=== PATIENT | female | born 1965 | race Caucasian/White ===

== ENCOUNTER → 2016-09-05 | Outpatient (CLI) | payer BC ==
--- NOTE | 2016-09-06 11:20 | MM ---
Reason for exam: screening (asymptomatic). Last mammogram was performed 1 year ago. History: Took hormonal contraceptives for 2 years. Physical Findings: A clinical breast exam by your physician is recommended on an annual basis and results should be correlated with mammographic findings. MG 3D Screening Mammo W/Cad Bilateral CC and MLO view(s) were taken. Prior study comparison: September 01, 2015, bilateral MG 3d screening mammo w/cad. The breast tissue is heterogeneously dense. This may lower the sensitivity of mammography. No significant changes when compared with prior studies. ASSESSMENT: Benign, BI-RAD 2 RECOMMENDATION: Routine screening mammogram of both breasts in 1 year.
== END ==
LOC: RADMAMWWP 13:12
PROVIDERS: ATTEND Family Medicine
DX: Z12.31 Encounter for screening mammogram for malignant neoplasm of breast (principal)
CPT/HCPCS: 77063; G0202

== ENCOUNTER → 2017-06-21 | Outpatient (CLI) | payer BC ==
--- NOTE | 2017-06-21 14:56 | NM ---
EXAMINATION TYPE: NM DatScan Brain SPECT DATE OF EXAM: 06/21/2017 COMPARISON: NONE HISTORY: Tremors TECHNIQUE: 10 drops of Lugol's solution was administered 1 hour prior to injection as a thyroid bloc carmelo agent. After the administration of 4.74 mCi I-123 Ioflupane DaTscan. Images obtained 3 hours p ost injection. SPECT images of the brain were acquired with axial and coronal reconstructions. FINDINGS: The axial SPECT images demonstrate increased background activity and normal activity within the bilateral striata. IMPRESSION: Normal uptake noted bilaterally.
== END | disposition home or self-care (01) ==
LOC: RADNMMAIN 09:41
PROVIDERS: ATTEND Psychiatry & Neurology Neurology
DX: G25.0 Essential tremor (principal)
CPT/HCPCS: 78607; A9584

== ENCOUNTER → 2017-07-10 | Outpatient (CLI) | payer BC ==
[2017-07-10 14:10] VITALS: BP 90/53; PULSE 88; RESP 15; TEMP 98.5; BMI 27.4
--- NOTE | 2017-07-10 15:56 | FL ---
EXAMINATION TYPE: FL barium swallow DATE OF EXAM: 07/10/2017 CLINICAL HISTORY: Gastric lap band with difficulty swallowing and vomiting for months. LAP-BAND place ment May 2013. TECHNIQUE: A single contrast esophagram is performed utilizing barium. 2 ounces of EZ paque used w ith 3 minutes and 48 seconds of fluoroscopy time and 80 images saved. COMPARISON: None FINDINGS: The esophagus shows normal motility proximally but delayed emptying into the stomach throug h the gastric lap band with eventual passage of contrast. This results in moderate intraesophageal re flux more exaggerated on gravity independent positioning than on gravity dependent positioning. Small hiatal hernia is seen. No significant gastroesophageal reflux was seen during real time performance of this study. No evidence of contrast extravasation. IMPRESSION: 1. Small hiatal hernia. 2. Delayed passage of contrast through the gastric lap band with mild obstruction resulting in modera te intraesophageal reflux.
[2017-07-10 17:52] LABS: HCT 41.3 % (34.0-46.0); HGB 13.5 gm/dL (11.4-16.0); MCH 31.2 pg (25.0-35.0); MCHC 32.6 g/dL (31.0-37.0); MCV 95.8 fL (80.0-100.0); Mean Platelet Volume 7.6; Platelet Count 202 k/uL (150-450); RBC 4.31 m/uL (3.80-5.40); RDW 12.1 % (11.5-15.5); WBC 4.4 k/uL (3.8-10.6)
[2017-07-10 17:57] LABS: Partial Thromboplastin Time 23.4 sec (22.0-30.0); Prothrombin Time 9.8 sec (9.0-12.0)
[2017-07-10 18:30] LABS: ALT 22 U/L (9-52); AST 20 U/L (14-36); Albumin 3.9 g/dL (3.5-5.0); Alkaline Phosphatase 62 U/L (38-126); Anion Gap 10 mmol/L; Blood Urea Nitrogen 16 mg/dL (7-17); Calcium 9.1 mg/dL (8.4-10.2); Carbon Dioxide 29 mmol/L (22-30); Chloride 101 mmol/L (98-107); Cholesterol 121 mg/dL (<200); Glucose 84 mg/dL (74-99); HDL Cholesterol 46 mg/dL (40-60); LDL Cholesterol,Calculated 64 mg/dL (0-99); Magnesium 1.8 mg/dL (1.6-2.3); Phosphorus 3.8 mg/dL (2.5-4.5); Potassium 4.3 mmol/L (3.5-5.1); Sodium 140 mmol/L (137-145); Total Bilirubin 0.2 mg/dL (0.2-1.3); Total Protein 6.3 g/dL (6.3-8.2); Triglycerides 53 mg/dL (<150)
[2017-07-11 00:38] LABS: Iron Saturation 16.01 (12.00-45.00)
[2017-07-11 00:49] LABS: Vitamin D 25 Hydroxy 18.2 ng/mL (30.0-100.0)
[2017-07-11 01:06] LABS: Folate, Serum 12.9 ng/mL
[2017-07-11 01:57] LABS: Parathyroid Hormone Intact 76.3 pg/mL (14.0-72.0)
[2017-07-12 10:56] LABS: Zinc, Serum 70 ug/dL (60-130)
[2017-07-12 16:19] LABS: Vitamin A 28 ug/dL (38-106)
[2017-07-16 08:52] LABS: Vitamin B1 64 ug/L (38-122)
[2017-07-16 15:35] LABS: Selenium 113 mcg/L (63-160)
--- NOTE | 2017-08-11 13:10 | P.PN ---
Subjective Progress Note Date: 07/10/17 DATE OF SERVICE: 07/10/2017 CHIEF COMPLAINT: Bariatric assessment. HISTORY OF PRESENT ILLNESS: Teresa Sharma is a 52-year-old female who initially had an adjustable gastric band placed in May 2011. For her height of 5 foot 4 she had weighed 200 pounds with BMI 34.4. She is now 7 years post procedure. She has maintained 40 pound weight loss. Since her last visit 2.5 years ago, she has lost 1 pound. Her percent excess weight loss is 72%. [place] body weight is 144 pounds. Her BMI has been reduced from 34.4 to 27.5. She has developed severe tremors after taking multiple antidepressants including Cymbalta, Effexor, Wellbutrin and Lexapro. She reports new onset epigastric abdominal pain. No she prevents for further evaluation and management. PAST MEDICAL HISTORY: 1. Chronic pain syndrome. 2. Morbid obesity. 3. Fibromyalgia. 4. Depression. 5. Bipolar disorder. 6. Hypothyroidism. 7. Essential tremors. PAST SURGICAL HISTORY: 1. Cholecystectomy. 2. Adjustable gastric band placement. 3. Tubal ligation. 4. . 5. Tonsillectomy. 6. Adenoidectomy. 7. Sinus surgery. 8. Neck fusion. 9. Hysterectomy. MEDICATIONS: 1. Tramadol. 2. Benadryl. 3. Imitrex. 4. Nystatin powder. 5. Synthroid. 6. Lexapro. 7. Valium. 8. Tylenol. ALLERGIES: CEPHALOSPORIN, KENALOG, LEVAQUIN, PENICILLIN, PREGABALIN, TETRACYCLINE, COUMADIN, LASIX, PAXIL, PREDNISONE, SULFA. FAMILY HISTORY: Stomach cancer including uterine cancer and colon cancer. SOCIAL HISTORY: Lifelong nontobacco user. REVIEW OF SYSTEMS: CONSTITUTIONAL: For her height of 5 foot 4 she had weighed 200 pounds with BMI 34.4. She is now 7 years post procedure. She has maintained 40 pound weight loss. Since her last visit 2.5 years ago, she has lost 1 pound. Her percent excess weight loss is 72%. [place] body weight is 144 pounds. Her BMI has been reduced from 34.4 to 27.5. GASTROINTESTINAL: No reports of increased gastroesophageal reflux disease. Reports epigastric abdominal pain. MUSCULOSKELETAL: Some improvement of lower back pain including knees since her weight loss. HEENT: No trouble with vision or hearing. ENDOCRINE: History of thyroid disorder. No reports of diabetes. CARDIOVASCULAR: No reports of chest palpitations or heart attacks. RESPIRATORY: No reports of asthma or pneumonia. NEURO: No reports of recent headaches. A pertinent history of fibromyalgia. Has chronic tremors. PSYCH: History of depression including bipolar disorder. HEMATOLOGIC: No reports of DVTs or pulmonary embolism. PHYSICAL EXAM: VITAL SIGNS: 5 feet 4 inches, 160 pounds. Vital Signs Temp 98.5 F 07/10/17 14:05 Pulse 88 07/10/17 14:05 Resp 15 07/10/17 14:05 BP 90/53 07/10/17 14:05 Pulse Ox GENERAL: Well-developed female in no distress. ABDOMEN: Soft, nontender. No erythema along the left upper abdomen. HEENT: No sclera icterus. Extraocular movements grossly intact. Moist buccal mucosa. Head is atraumatic, normocephalic. Hears conversational speech. No nasal drainage. NECK: Supple without lymphadenopathy. No JV distention. CHEST: Non-labored respirations and equal bilateral excursions. CARDIOVASCULAR: Regular rate and rhythm. Palpable 2+ radial pulses. MUSCULOSKELETAL: No clubbing, cyanosis or edema. NEUROLOGIC: No focal or lateralizing signs. Cranial nerves II through XII grossly intact. PSYCH: Appropriate affect. Alert and oriented to person, place and time. SKIN: Well perfused. Good skin turgor. ASSESSMENT: 1. Morbid obesity due to exogenous caloric intake. 2. Body mass index reduced from 34.4 to 27.5. 3. History of adjustable gastric band. 4. Osteoarthritis of the lower back. 5. History of gastroesophageal reflux disease symptoms. 6. History of depression. 7. Epigastric abdominal pain. 8. Essential tremors PLAN: 1. With her epigastric abdominal pain, recommend esophagram. 2. Recommend bariatric metabolic panel. 3. For her essential tremors, recommend evaluation for thiamine deficiency. Laboratory Last Values WBC 4.4 k/uL (3.8-10.6) 07/10/17 16:55 RBC 4.31 m/uL (3.80-5.40) 07/10/17 16:55 Hgb 13.5 gm/dL (11.4-16.0) 07/10/17 16:55 Hct 41.3 % (34.0-46.0) 07/10/17 16:55 MCV 95.8 fL (80.0-100.0) 07/10/17 16:55 MCH 31.2 pg (25.0-35.0) 07/10/17 16:55 MCHC 32.6 g/dL (31.0-37.0) 07/10/17 16:55 RDW 12.1 % (11.5-15.5) 07/10/17 16:55 Plt Count 202 k/uL (150-450) 07/10/17 16:55 PT 9.8 sec (9.0-12.0) 07/10/17 16:55 INR 1.0 (<1.2) 07/10/17 16:55 APTT 23.4 sec (22.0-30.0) 07/10/17 16:55 Sodium 140 mmol/L (137-145) 07/10/17 16:55 Potassium 4.3 mmol/L (3.5-5.1) 07/10/17 16:55 Chloride 101 mmol/L (98-107) 07/10/17 16:55 Carbon Dioxide 29 mmol/L (22-30) 07/10/17 16:55 Anion Gap 10 mmol/L 07/10/17 16:55 BUN 16 mg/dL (7-17) 07/10/17 16:55 Creatinine 0.80 mg/dL (0.52-1.04) 07/10/17 16:55 Est GFR (MDRD) Af Amer >60 (>60 ml/min/1.73 sqM) 07/10/17 16:55 Est GFR (MDRD) Non-Af >60 (>60 ml/min/1.73 sqM) 07/10/17 16:55 Glucose 84 mg/dL (74-99) 07/10/17 16:[address] Glu mg/dL 97 07/10/17 16:55 Hemoglobin A1c 5.0 % (4.0-6.0) 07/10/17 16:55 Calcium 9.1 mg/dL (8.4-10.2) 07/10/17 16:55 Phosphorus 3.8 mg/dL (2.5-4.5) 07/10/17 16:55 Magnesium 1.8 mg/dL (1.6-2.3) 07/10/17 16:55 Iron 53 ug/dL (50-170) 07/10/17 16:55 TIBC 331 ug/dL (228-460) 07/10/17 16:55 Iron Saturation 16.01 (12.00-45.00) 07/10/17 16:55 Ferritin 31.7 ng/mL (10.0-291.0) 07/10/17 16:55 Total Bilirubin 0.2 mg/dL (0.2-1.3) 07/10/17 16:55 AST 20 U/L (14-36) 07/10/17 16:55 ALT 22 U/L (9-52) 07/10/17 16:55 Alkaline Phosphatase 62 U/L (38-126) 07/10/17 16:55 Total Protein 6.3 g/dL (6.3-8.2) 07/10/17 16:55 Albumin 3.9 g/dL (3.5-5.0) 07/10/17 16:55 Prealbumin 17.0 mg/dL (18.0-42.0) L 07/10/17 16:55 Triglycerides 53 mg/dL (<150) 07/10/17 16:55 Cholesterol 121 mg/dL (<200) 07/10/17 16:55 LDL Cholesterol, Calc 64 mg/dL (0-99) 07/10/17 16:55 HDL Cholesterol 46 mg/dL (40-60) 07/10/17 16:55 Vitamin A 28 ug/dL (38-106) L 07/10/17 16:55 Vitamin B1 64 ug/L (38-122) 07/10/17 16:55 Vitamin B12 446.0 pg/mL (200.0-944.0) 07/10/17 16:55 Vitamin D 25-Hydroxy 18.2 ng/mL (30.0-100.0) L 07/10/17 16:55 Folate 12.9 ng/mL 07/10/17 16:55 TSH 0.434 mIU/L (0.465-4.680) L 07/10/17 16:55 PTH Intact 76.3 pg/mL (14.0-72.0) H 07/10/17 16:55 Copper 992 ug/L (810-1990) 07/10/17 16:55 Selenium 113 mcg/L (63-160) 07/10/17 16:55 Zinc 70 ug/dL (60-130) 07/10/17 16:55 Vitamin A is slow. Vitamin D is low TSH is suppressed PTH elevated Prealbumin is low Recommend vitamin A supplement Recommend vitamin D supplement Recommend adjustment thyroid supplement Recommend calcium intake 1200 mg daily Recommend protein intake over 75 g daily Objective - Vital Signs Vital signs: Vital Signs Temp 98.5 F 07/10/17 14:05 Pulse 88 07/10/17 14:05 Resp 15 07/10/17 14:05 BP 90/53 07/10/17 14:05 Pulse Ox Intake & Output 07/09/17 07/10/17 07/10/17 18:59 06:59 18:59 Weight 72.575 kg - Labs CBC & Chem 7: 07/10/17 16:55 07/10/17 16:55
== END | disposition home or self-care (01) ==
LOC: BARWHC3 13:56
PROVIDERS: ATTEND Surgery Plastic and Reconstructive Surgery
DX: E66.01 Morbid (severe) obesity due to excess calories (principal); M19.90 Unspecified osteoarthritis, unspecified site; R10.13 Epigastric pain; G25.0 Essential tremor; K44.9 Diaphragmatic hernia without obstruction or gangrene; E21.1 Secondary hyperparathyroidism, not elsewhere classified; E89.1 Postprocedural hypoinsulinemia; D50.9 Iron deficiency anemia, unspecified; E44.0 Moderate protein-calorie malnutrition; E55.9 Vitamin D deficiency, unspecified; K74.1 Hepatic sclerosis; N19 Unspecified kidney failure; K50.90 Crohn's disease, unspecified, without complications; K21.9 Gastro-esophageal reflux disease without esophagitis; Z88.2 Allergy status to sulfonamides; Z88.8 Allergy status to other drugs, medicaments and biological substances; Z88.1 Allergy status to other antibiotic agents; Z88.0 Allergy status to penicillin; Z79.899 Other long term (current) drug therapy; Z79.891 Long term (current) use of opiate analgesic; Z86.59 Personal history of other mental and behavioral disorders; Z98.84 Bariatric surgery status; Z68.27 Body mass index [BMI] 27.0-27.9, adult; Z87.19 Personal history of other diseases of the digestive system
CPT/HCPCS: 74220; 80053; 80061; 82306; 82525; 82607; 82728; 82746; 83036; 83540; 83550; 83735; 83970; 84100; 84134; 84255; 84425; 84443; 84590; 84630; 85027; 85610; 85730; 99212

== ENCOUNTER → 2017-07-22 | Outpatient (CLI) | payer BC ==
--- NOTE | 2017-07-22 12:05 | MR ---
EXAMINATION TYPE: MR brain wo con DATE OF EXAM: 07/22/2017 COMPARISON: NONE HISTORY: Essential tremor / Migraine TECHNIQUE: Multiplanar, multisequence images of the brain and brainstem is performed without IV contrast. FINDINGS: Diffusion weighted images demonstrate no evidence of a recent infarct or other diffusion ab normality. Two punctate foci of nonspecific white matter change measuring 2 mm and 3 mm are seen wit hin the right periventricular white matter of the frontal lobe and subcortical white matter of the le ft frontal lobe. No vasogenic edema seen surrounding these punctate foci. There is no extra-axial flu id collection. The ventricular system and cisternal spaces are normal in size and appearance. The b rain volume is age appropriate. Midline structures demonstrate normal morphology. The craniocervical junction appears within normal limits. The dural venous sinuses appear patent. The globes are intact and extraocular muscles are sy mmetric. 4 mm mucosal retention cyst is seen within the right maxillary sinus. Scant mucosal thickeni ng is present within the ethmoid sinuses. Remaining paranasal sinuses and mastoid air cells are well aerated. IMPRESSION: 1. Two punctate foci of nonspecific white matter change within the frontal lobes. This is the most ch aracteristic location for sequela of migraines but can also be seen in vasculitides or demyelinating disease, which are considered less likely. 2. Mild paranasal sinus disease within the ethmoid and right maxillary sinus with 4 mm mucosal retent ion cyst.
== END | disposition home or self-care (01) ==
LOC: RADMRIMAIN 10:46
PROVIDERS: ATTEND Nurse Practitioner Acute Care
DX: R90.82 White matter disease, unspecified (principal); G25.0 Essential tremor; Z88.5 Allergy status to narcotic agent; Z88.8 Allergy status to other drugs, medicaments and biological substances
CPT/HCPCS: 70551

== ENCOUNTER → 2017-09-04 | Outpatient (CLI) | payer BC ==
[2017-09-04 15:10] VITALS: BP 100/57; PULSE 94; TEMP 98; BMI 27.4
--- NOTE | 2017-09-28 13:39 | P.PN ---
Subjective Progress Note Date: 09/04/17 DATE OF SERVICE: 09/04/2017 CHIEF COMPLAINT: Bariatric assessment HISTORY OF PRESENT ILLNESS: Teresa Sharma is a 52-year-old female who initially had an adjustable gastric band placed in May 2011. For her height of 5 foot 4 she had weighed 200 pounds with BMI 34.4. She is 7 years postop. Today she comes in weighing 159 pounds. She has maintained 41 pound weight loss. Since her last visit 2 months ago, her weight is unchanged. Her percent excess weight loss is 72%. [place] body weight is 144 pounds. Her BMI has been reduced from 34.4 to 27.4. She reports increased gastroesophageal reflux disease including epigastric abdominal pain. PAST MEDICAL HISTORY: 1. Chronic pain syndrome. 2. Morbid obesity. 3. Fibromyalgia. 4. Depression. 5. Bipolar disorder. 6. Hypothyroidism. 7. Essential tremors. PAST SURGICAL HISTORY: 1. Cholecystectomy. 2. Adjustable gastric band placement. 3. Tubal ligation. 4. . 5. Tonsillectomy. 6. Adenoidectomy. 7. Sinus surgery. 8. Neck fusion. 9. Hysterectomy. MEDICATIONS: 1. Tramadol. 2. Benadryl. 3. Imitrex. 4. Nystatin powder. 5. Synthroid. 6. Lexapro. 7. Valium. 8. Tylenol. ALLERGIES: CEPHALOSPORIN, KENALOG, LEVAQUIN, PENICILLIN, PREGABALIN, TETRACYCLINE, COUMADIN, LASIX, PAXIL, PREDNISONE, SULFA. FAMILY HISTORY: Stomach cancer including uterine cancer and colon cancer. SOCIAL HISTORY: Lifelong nontobacco user. REVIEW OF SYSTEMS: CONSTITUTIONAL: For her height of 5 foot 4 she had weighed 200 pounds with BMI 34.4. She is now 7 years post procedure. She has maintained 40 pound weight loss. Since her last visit 2.5 years ago, she has lost 1 pound. Her percent excess weight loss is 72%. [place] body weight is 144 pounds. Her BMI has been reduced from 34.4 to 27.5. GASTROINTESTINAL: No reports of increased gastroesophageal reflux disease. Reports epigastric abdominal pain. MUSCULOSKELETAL: Some improvement of lower back pain including knees since her weight loss. HEENT: No trouble with vision or hearing. ENDOCRINE: History of thyroid disorder. No reports of diabetes. CARDIOVASCULAR: No reports of chest palpitations or heart attacks. RESPIRATORY: No reports of asthma or pneumonia. NEURO: No reports of recent headaches. A pertinent history of fibromyalgia. Has chronic tremors. PSYCH: History of depression including bipolar disorder. HEMATOLOGIC: No reports of DVTs or pulmonary embolism. PHYSICAL EXAM: VITAL SIGNS: 5 feet 4 inches, 159 pounds. BMI 27.4. Vital Signs Temp 98 F 09/04/17 15:08 Pulse 94 09/04/17 15:08 Resp BP 100/57 09/04/17 15:08 Pulse Ox GENERAL: Well-developed female in no distress. ABDOMEN: Soft, nontender. Nondistended. No tenderness over her band. HEENT: No sclera icterus. Extraocular movements grossly intact. Moist buccal mucosa. Head is atraumatic, normocephalic. Hears conversational speech. No nasal drainage. NECK: Supple without lymphadenopathy. No JV distention. CHEST: Non-labored respirations and equal bilateral excursions. CARDIOVASCULAR: Regular rate and rhythm. Palpable 2+ radial pulses. MUSCULOSKELETAL: No clubbing, cyanosis or edema. NEUROLOGIC: No focal or lateralizing signs. Cranial nerves II through XII grossly intact. PSYCH: Appropriate affect. Alert and oriented to person, place and time. SKIN: Well perfused. Good skin turgor. LABS: Reviewed in detail. Laboratory Last Values WBC 4.4 k/uL (3.8-10.6) 07/10/17 16:55 RBC 4.31 m/uL (3.80-5.40) 07/10/17 16:55 Hgb 13.5 gm/dL (11.4-16.0) 07/10/17 16:55 Hct 41.3 % (34.0-46.0) 07/10/17 16:55 MCV 95.8 fL (80.0-100.0) 07/10/17 16:55 MCH 31.2 pg (25.0-35.0) 07/10/17 16:55 MCHC 32.6 g/dL (31.0-37.0) 07/10/17 16:55 RDW 12.1 % (11.5-15.5) 07/10/17 16:55 Plt Count 202 k/uL (150-450) 07/10/17 16:55 PT 9.8 sec (9.0-12.0) 07/10/17 16:55 INR 1.0 (<1.2) 07/10/17 16:55 APTT 23.4 sec (22.0-30.0) 07/10/17 16:55 Sodium 140 mmol/L (137-145) 07/10/17 16:55 Potassium 4.3 mmol/L (3.5-5.1) 07/10/17 16:55 Chloride 101 mmol/L (98-107) 07/10/17 16:55 Carbon Dioxide 29 mmol/L (22-30) 07/10/17 16:55 Anion Gap 10 mmol/L 07/10/17 16:55 BUN 16 mg/dL (7-17) 07/10/17 16:55 Creatinine 0.80 mg/dL (0.52-1.04) 07/10/17 16:55 Est GFR (MDRD) Af Amer >60 (>60 ml/min/1.73 sqM) 07/10/17 16:55 Est GFR (MDRD) Non-Af >60 (>60 ml/min/1.73 sqM) 07/10/17 16:55 Glucose 84 mg/dL (74-99) 07/10/17 16:[address] Glu mg/dL 97 07/10/17 16:55 Hemoglobin A1c 5.0 % (4.0-6.0) 07/10/17 16:55 Calcium 9.1 mg/dL (8.4-10.2) 07/10/17 16:55 Phosphorus 3.8 mg/dL (2.5-4.5) 07/10/17 16:55 Magnesium 1.8 mg/dL (1.6-2.3) 07/10/17 16:55 Iron 53 ug/dL (50-170) 07/10/17 16:55 TIBC 331 ug/dL (228-460) 07/10/17 16:55 Iron Saturation 16.01 (12.00-45.00) 07/10/17 16:55 Ferritin 31.7 ng/mL (10.0-291.0) 07/10/17 16:55 Total Bilirubin 0.2 mg/dL (0.2-1.3) 07/10/17 16:55 AST 20 U/L (14-36) 07/10/17 16:55 ALT 22 U/L (9-52) 07/10/17 16:55 Alkaline Phosphatase 62 U/L (38-126) 07/10/17 16:55 Total Protein 6.3 g/dL (6.3-8.2) 07/10/17 16:55 Albumin 3.9 g/dL (3.5-5.0) 07/10/17 16:55 Prealbumin 17.0 mg/dL (18.0-42.0) L 07/10/17 16:55 Triglycerides 53 mg/dL (<150) 07/10/17 16:55 Cholesterol 121 mg/dL (<200) 07/10/17 16:55 LDL Cholesterol, Calc 64 mg/dL (0-99) 07/10/17 16:55 HDL Cholesterol 46 mg/dL (40-60) 07/10/17 16:55 Vitamin A 28 ug/dL (38-106) L 07/10/17 16:55 Vitamin B1 64 ug/L (38-122) 07/10/17 16:55 Vitamin B12 446.0 pg/mL (200.0-944.0) 07/10/17 16:55 Vitamin D 25-Hydroxy 18.2 ng/mL (30.0-100.0) L 07/10/17 16:55 Folate 12.9 ng/mL 07/10/17 16:55 TSH 0.434 mIU/L (0.465-4.680) L 07/10/17 16:55 PTH Intact 76.3 pg/mL (14.0-72.0) H 07/10/17 16:55 Copper 992 ug/L (810-1990) 07/10/17 16:55 Selenium 113 mcg/L (63-160) 07/10/17 16:55 Zinc 70 ug/dL (60-130) 07/10/17 16:55 Vitamin A is low Vitamin D is low TSH is suppressed PTH elevated Prealbumin is low STUDIES: Esophogram reviewed demonstrating esophageal reflux and hiatal hernia. ASSESSMENT: 1. Morbid obesity due to exogenous caloric intake. 2. Body mass index reduced from 34.4 to 27.4. 3. History of adjustable gastric band. 4. Osteoarthritis of the lower back. 5. History of gastroesophageal reflux disease symptoms. 6. History of depression. 7. Vitamin A deficiency 8. Vitamin D deficiency 9. Suppressed TSH 10. Inadequate protein intake 11. Dietary surveillance and counseling PLAN: 1. Labs reviewed. Findings are consistent with multiple vitamin deficiencies. 2. Recommend adjustment of her band 3. Recommend calcium intake 1200 mg daily 4. Recommend protein intake over 75 g daily PROCEDURES: Adjustment of gastric band. DESCRIPTION: After verbal consent. Patient was laid supine. The abdomen was cleansed with ChloraPrep over the port site. After ChloraPrep to the skin, the skin was localized with 1% lidocaine 1 mL. From her band, 1 mL of fluid was removed of 7 mL. total in her band is 6 mL. Follow up as needed. Objective - Vital Signs Vital signs: Intake & Output 09/03/17 09/04/17 09/04/17 18:59 06:59 18:59 Weight 72.484 kg
== END | disposition home or self-care (01) ==
LOC: BARWHC3 13:28
PROVIDERS: ATTEND Surgery Plastic and Reconstructive Surgery
DX: Z09 Encounter for follow-up examination after completed treatment for conditions other than malignant neoplasm (principal); E66.01 Morbid (severe) obesity due to excess calories; M19.90 Unspecified osteoarthritis, unspecified site; E55.9 Vitamin D deficiency, unspecified; E50.9 Vitamin A deficiency, unspecified; E06.0 Acute thyroiditis; Z86.59 Personal history of other mental and behavioral disorders; Z87.19 Personal history of other diseases of the digestive system; Z98.84 Bariatric surgery status; Z71.3 Dietary counseling and surveillance; Z88.8 Allergy status to other drugs, medicaments and biological substances; Z88.0 Allergy status to penicillin; Z88.1 Allergy status to other antibiotic agents; Z88.2 Allergy status to sulfonamides; Z79.891 Long term (current) use of opiate analgesic; Z79.899 Other long term (current) drug therapy
CPT/HCPCS: 99212

== ENCOUNTER → 2018-02-13 | Outpatient (CLI) | payer BC ==
--- NOTE | 2018-02-14 11:32 | MM ---
Reason for exam: screening (asymptomatic). Last mammogram was performed 1 year and 5 months ago. History: Took hormonal contraceptives for 2 years. Physical Findings: A clinical breast exam by your physician is recommended on an annual basis and results should be correlated with mammographic findings. MG 3D Screening Mammo W/Cad Bilateral CC and MLO view(s) were taken. Prior study comparison: September 05, 2016, bilateral MG 3d screening mammo w/cad. September 01, 2015, bilateral MG 3d screening mammo w/cad. The breast tissue is heterogeneously dense. This may lower the sensitivity of mammography. There is no discrete abnormality. ASSESSMENT: Negative, BI-RAD 1 RECOMMENDATION: Routine screening mammogram of both breasts in 1 year.
== END | disposition home or self-care (01) ==
LOC: RADMAMWWP 11:15
PROVIDERS: ATTEND Family Medicine
DX: Z12.31 Encounter for screening mammogram for malignant neoplasm of breast (principal)
CPT/HCPCS: 77063; 77067

== ENCOUNTER 2018-02-19 10:08 | Day surgery (SDC) | payer BC ==
[2018-02-17 13:19] VITALS: BMI 26.1
--- NOTE | 2018-02-19 09:49 | P.GSHP ---
History of Present Illness H&P Date: 02/19/18 CHIEF COMPLAINT: Colon screen HISTORY OF PRESENT ILLNESS: The patient is a 52-year-old female who presents for colon screen. Lower endoscopy was offered for further evaluation and management. PAST MEDICAL HISTORY: Please see list. PAST SURGICAL HISTORY: Please see list. MEDICATIONS: Please see list. ALLERGIES: Please see list. SOCIAL HISTORY: No illicit drug use FAMILY HISTORY: No reports of Crohn disease or ulcerative colitis. REVIEW OF ORGAN SYSTEMS: CONSTITUTIONAL: No reports of fevers or chills. PHYSICAL EXAM: VITAL SIGNS: Stable GENERAL: Well-developed pleasant in no acute distress. HEENT: No scleral icterus. Extraocular movements grossly intact. Moist buccal mucosa. NECK: Supple without lymphadenopathy. CHEST: Unlabored respirations. Equal bilateral excursions. CARDIOVASCULAR: Regular rate and rhythm. Distal 2+ pulses. ABDOMEN: Soft, nontender, nondistended. MUSCULOSKELETAL: No clubbing, cyanosis, or edema. ASSESSMENT: 1. Colon screen. PLAN: 1. 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, hx ROSACEA, scoliosis History of Any Multi-Drug Resistant Organisms: None Reported Past Surgical History: Bariatric Surgery, Bladder Surgery, Section, Cholecystectomy, Hysterectomy, Tonsillectomy, Tubal Ligation Additional Past Surgical History / Comment(s): LAP BAND 2011, ,NASAL SURGERY, CERVICAL FUSION X2, dilitation of urethra Past Anesthesia/Blood Transfusion Reactions: Motion Sickness, Postoperative Nausea & Vomiting (PONV) Smoking Status: Never smoker - Past Family History Mother Family Medical History: No Reported History Medications and Allergies Home Medications Medication Instructions Recorded Confirmed Type Acetaminophen [Tylenol] 650 mg PO Q4H PRN 01/29/14 02/17/18 History Diazepam [Valium] 5 mg PO DAILY PRN 01/29/14 02/17/18 History Escitalopram [Lexapro] 5 mg PO HS 01/29/14 02/17/18 History Levothyroxine Sodium [Synthroid] 50 mcg PO HS 01/29/14 02/17/18 History SUMAtriptan SUCCINATE [Imitrex] 100 mg PO DIRECTED PRN 01/29/14 02/17/18 History diphenhydrAMINE [Benadryl] 25 mg PO HS 01/29/14 02/17/18 History traMADol HCl [Ultram] 50 mg PO BID 01/29/14 02/17/18 History Albuterol Sulfate [Proventil Hfa] 1 - 2 puff INHALATION Q6HR PRN 08/25/14 History Esomeprazole Magnesium [NexIUM] 20 mg PO Q48H 01/19/15 02/17/18 History ARIPiprazole [Abilify] 5 mg PO HS 07/10/17 02/17/18 History Loratadine [Claritin] 10 mg PO Q48H 02/17/18 02/17/18 History Nystatin 100,000 Unit/gm Powd 1 applic TOPICAL BID PRN 02/17/18 02/17/18 History [Mycostatin Powder] rOPINIRole HCL [Requip Xl] 4 mg PO HS 02/17/18 02/17/18 History Allergies Allergy/AdvReac Type Severity Reaction Status Date / Time adhesive Allergy Rash/Hives Verified 02/17/18 13:06 cephalexin monohydrate Allergy Rash/Hives Verified 02/17/18 13:06 [From Keflex] codeine Allergy INCREASED Verified 02/17/18 13:06 PAIN AND DELUSIONS lactose Allergy Nausea & Verified 02/17/18 13:06 Vomiting & Diarrhea latex Allergy Rash/Hives Verified 02/17/18 13:06 levofloxacin [From Levaquin] Allergy SOB AND Verified 02/17/18 13:06 RAPID HEART RATE morphine Allergy Dyspnea Verified 02/17/18 13:06 nortriptyline HCl Allergy Rapid Verified 02/17/18 13:06 [From Pamelor] Heart Rate Penicillins Allergy Rash/Hives Verified 02/17/18 13:06 pregabalin [From Lyrica] Allergy B/P DROPS Verified 02/17/18 13:06 tetracycline [Tetracycline] Allergy VAGINAL Verified 02/17/18 13:06 BLEEDING AND BLUISH COLORATION TO SKIN triamcinolone acetonide Allergy Rash/Hives Verified 02/17/18 13:06 [From Kenalog] montelukast sodium AdvReac MIGRAINES Verified 02/17/18 13:06 [From Arlen]
[~2018-02-19 10:08] MED LIST: LACTATED RINGERS 1,000 ML IV SCH; LIDOCAINE 1% 20 ML VIAL (10MG/ML) FOR IV START INTRADERMA PRN
[2018-02-19 10:47] VITALS: TEMP 98.3
[2018-02-19] MEDS ORDERED: LACTATED RINGERS 1,000 ML IV ONE (10:54)
[2018-02-19] MEDS ORDERED: ePHEDrine SULFATE/0.9% NACL/PF 50 MG/5 ML SYRINGE IV ONE (11:35)
[2018-02-19] MEDS ORDERED: LIDOCAINE 1% INJ 10MG/ML (20 ML MDV) ONE (11:35)
[2018-02-19] MEDS ORDERED: PROPOFOL 10 MG/ML 20 ML VIAL IV ONE (11:35)
[2018-02-19] MEDS ORDERED: PHENYLEPHRINE-0.9% NACL SYG 1 MG/10 ML SYRINGE ONE (11:35)
--- NOTE | 2018-02-19 11:56 | P.PCN ---
Date of Procedure: 02/19/18 Description of Procedure: PREOPERATIVE DIAGNOSIS: Colonoscopy screening. Family history high-risk colon polyp POSTOPERATIVE DIAGNOSIS: Colonoscopy screening. Family history high-risk colon polyp OPERATION: Colonoscopy to the ileocecal valve and appendiceal orifice. SURGEON: Cecilia Lua MD. ANESTHESIA: MAC. INDICATIONS: The patient is a 52-year-old female who presents for colonoscopy screening. Benefits and risks were described and informed consent was obtained. DESCRIPTION OF PROCEDURE: The patient had undergone Gatorade, MiraLAX and Dulcolax prep. She had been brought into the operating room and laid in the left lateral decubitus position. After adequate intravenous sedation, the rectum was examined with 2% lidocaine jelly. No external hemorrhoids were encountered. The rectal tone was within normal limits. No lesions were palpated in the rectal vault. An Olympus colonoscope was advanced until the ileocecal valve and appendiceal orifice were clearly viewed. The prep was excellent with clear visualization of the mucosal folds. Abdominal wall pressure was used to advance the scope. The scope was removed with visualization of each mucosal fold. No scattered diverticulosis was encountered. No colonic polyps were found. No evidence of focal colitis was found. Retroflexion of the scope demonstrated grade 1 internal hemorrhoids without active bleeding or inflammation. The colon was desufflated. The patient had tolerated the procedure well. Withdrawal time was over 6 minutes. FINDINGS: No internal hemorrhoids No external prolapsed hemorrhoids. No arteriovenous malformations. No adenomatous polyps. No focal colitis. No diverticulosis RECOMMENDATIONS: Lower endoscopy in 5 years, 2022, due to family history of high-risk polyp Plan - Discharge Summary New Discharge Prescriptions: No Action Diazepam [Valium] 5 mg PO DAILY PRN PRN Reason: Anxiety SUMAtriptan SUCCINATE [Imitrex] 100 mg PO DIRECTED PRN PRN Reason: Migraine Headache Acetaminophen [Tylenol] 650 mg PO Q4H PRN PRN Reason: Pain diphenhydrAMINE [Benadryl] 25 mg PO HS Levothyroxine Sodium [Synthroid] 50 mcg PO HS Escitalopram [Lexapro] 5 mg PO HS traMADol HCl [Ultram] 50 mg PO BID Albuterol Sulfate [Proventil Hfa] 1 - 2 puff INHALATION Q6HR PRN PRN Reason: Shortness Of Breath Esomeprazole Magnesium [NexIUM] 20 mg PO Q48H ARIPiprazole [Abilify] 5 mg PO HS rOPINIRole HCL [Requip Xl] 4 mg PO HS Loratadine [Claritin] 10 mg PO Q48H Nystatin 100,000 Unit/gm Powd [Mycostatin Powder] 1 applic TOPICAL BID PRN PRN Reason: Rash Discharge Medication List Acetaminophen [Tylenol] 650 mg PO Q4H PRN 01/29/14 [History] Diazepam [Valium] 5 mg PO DAILY PRN 01/29/14 [History] Escitalopram [Lexapro] 5 mg PO HS 01/29/14 [History] Levothyroxine Sodium [Synthroid] 50 mcg PO HS 01/29/14 [History] SUMAtriptan SUCCINATE [Imitrex] 100 mg PO DIRECTED PRN 01/29/14 [History] diphenhydrAMINE [Benadryl] 25 mg PO HS 01/29/14 [History] traMADol HCl [Ultram] 50 mg PO BID 01/29/14 [History] Albuterol Sulfate [Proventil Hfa] 1 - 2 puff INHALATION Q6HR PRN 08/25/14 [ History] Esomeprazole Magnesium [NexIUM] 20 mg PO Q48H 01/19/15 [History] ARIPiprazole [Abilify] 5 mg PO HS 07/10/17 [History] Loratadine [Claritin] 10 mg PO Q48H 02/17/18 [History] Nystatin 100,000 Unit/gm Powd [Mycostatin Powder] 1 applic TOPICAL BID PRN 02/17 [History] rOPINIRole HCL [Requip Xl] 4 mg PO HS 02/17/18 [History]
[2018-02-19 12:40] VITALS: BP 96/66; PULSE 72; RESP 18
== END 2018-02-19 13:05 | disposition home or self-care (01) ==
LOC: ORWHC2ENDO 10:08
PROVIDERS: ATTEND Surgery Plastic and Reconstructive Surgery
DX: Z12.11 Encounter for screening for malignant neoplasm of colon (principal); Z83.71 Family history of colonic polyps; K21.9 Gastro-esophageal reflux disease without esophagitis; J45.909 Unspecified asthma, uncomplicated; M79.7 Fibromyalgia; E07.9 Disorder of thyroid, unspecified; Z98.84 Bariatric surgery status; Z79.890 Hormone replacement therapy; Z79.891 Long term (current) use of opiate analgesic; Z79.899 Other long term (current) drug therapy; Z88.5 Allergy status to narcotic agent; Z88.0 Allergy status to penicillin; Z88.8 Allergy status to other drugs, medicaments and biological substances; Z88.1 Allergy status to other antibiotic agents; Z91.011 Allergy to milk products
CPT/HCPCS: J2370; J2704; G0105; 45378

== ENCOUNTER → 2018-10-13 | Outpatient (CLI) | payer BC ==
--- NOTE | 2018-10-13 17:39 | BD ---
EXAMINATION TYPE: Axial Bone Density DATE OF EXAM: 10/13/2018 COMPARISON: NONE CLINICAL HISTORY: 53-year-old female special screening for osteoporosis Height: 63.5 IN Weight: 151 LBS RISK FACTORS HISTORY OF: Active: YES Diet low in dairy products/other sources of calcium: YES Postmenopausal woman: AGE 50 PARTIAL HYST Take estrogen and/or progesterone medications: YES How long: CONTROL AGE 21-24; PREMARIN FOR 3 WKS MEDICATIONS: Thyroid Medications: YES Which medication: Levothyroxine How Lon YEARS Additional Medications: CALCIUM, LEVOTHYROXINE,PREMARIN, LEXAPRO, ABILIFY, CLARITIN D, TREMORS MEDS, EXAM MEASUREMENTS: Bone mineral densitometry was performed using the Load [employer] System. Bone mineral density as measured about the Lumbar spine is: ----- L1-L4(G/cm2): 1.201 T Score Values are as follows: ----- L2: 1.2 ----- L3: 1.5 ----- L4: -0.5 ----- L1-L4: 0.2 Bone mineral density BASELINE Bone mineral density about the R hip (g/cm2): 0.846 Bone mineral density about the L hip (g/cm2): 0.839 T Score values are as follows: -----R Neck: -1.4 -----L Neck: -1.4 -----R Total: -1.2 -----L Total: -1.2 Bone mineral density BASELINE IMPRESSION: Osteopenia (T Score between -2.5 and -1). There is slightly increased risk of fracture and the patient may be considered for treatment. Re-Screen 2-5 years. NOTE: T-SCORE=SD OF THE YOUNG ADULT MEAN.
== END ==
LOC: RADBDWWP 08:29
PROVIDERS: ATTEND Obstetrics & Gynecology
DX: M85.80 Other specified disorders of bone density and structure, unspecified site (principal)
CPT/HCPCS: 77080

== ENCOUNTER → 2019-06-12 | Outpatient (CLI) | payer BC ==
[2019-06-12 14:31] LABS: Appearance,Urine Clear (Clear); Bilirubin,Urine Negative (Negative); Blood,Urine Negative (Negative); Color,Urine Yellow; Glucose,Urine (UA) Negative (Negative); Ketones,Urine Negative (Negative); Leukocyte Esterase,Urine Negative (Negative); Nitrite,Urine Negative (Negative); Protein,Urine Negative (Negative); Specific Gravity,Urine 1.026 (1.001-1.035); Urobilinogen,Urine <2.0 mg/dL (<2.0)
[2019-06-12 15:18] LABS: Basophils % (A) 0 %; Eosinophils # (A) 0.1 k/uL (0-0.7); Eosinophils % (A) 2 %; HCT 42.3 % (34.0-46.0); HGB 13.6 gm/dL (11.4-16.0); Lymphocytes # (A) 1.1 k/uL (1.0-4.8); Lymphocytes % (A) 15 %; MCH 31.4 pg (25.0-35.0); MCHC 32.1 g/dL (31.0-37.0); MCV 98.1 fL (80.0-100.0); Mean Platelet Volume 8.1; Monocytes # (A) 0.3 k/uL (0-1.0); Monocytes % (A) 4 %; Neutrophils # (A) 5.4 k/uL (1.3-7.7); Neutrophils % (A) 78 %; Platelet Count 187 k/uL (150-450); RBC 4.31 m/uL (3.80-5.40); WBC 6.9 k/uL (3.8-10.6)
[2019-06-12 15:31] LABS: ALT 12 U/L (4-34); AST 24 U/L (14-36); African American GFR (CKD) >90 (>60 ml/min/1.73 sqM); Alkaline Phosphatase 54 U/L (38-126); Anion Gap 5 mmol/L; Blood Urea Nitrogen 19 mg/dL (7-17); Calcium 9.2 mg/dL (8.4-10.2); Carbon Dioxide 30 mmol/L (22-30); Chloride 104 mmol/L (98-107); Cholesterol 155 mg/dL (<200); Glucose 82 mg/dL (74-99); HDL Cholesterol 65 mg/dL (40-60); LDL Cholesterol,Calculated 75 mg/dL (0-99); Non-African American GFR(CKD) 79 (>60 ml/min/1.73 sqM); Potassium 4.3 mmol/L (3.5-5.1); Sodium 139 mmol/L (137-145); Total Bilirubin 0.3 mg/dL (0.2-1.3); Total Protein 6.9 g/dL (6.3-8.2); Triglycerides 76 mg/dL (<150)
[2019-06-12 15:48] LABS: T4, Free (Free Thyroxine) 1.25 ng/dL (0.78-2.19)
--- NOTE | 2019-06-15 13:18 | MM ---
Reason for exam: screening (asymptomatic). Last mammogram was performed 1 year and 4 months ago. History: Took hormonal contraceptives for 2 years. Taking estrogen for 6 months. Physical Findings: A clinical breast exam by your physician is recommended on an annual basis and results should be correlated with mammographic findings. MG 3D Screening Mammo W/Cad Bilateral CC and MLO view(s) were taken. Prior study comparison: February 13, 2018, bilateral MG 3d screening mammo w/cad. September 05, 2016, bilateral MG 3d screening mammo w/cad. The breast tissue is heterogeneously dense. This may lower the sensitivity of mammography. No suspicious abnormality. No significant changes when compared with prior studies. ASSESSMENT: Negative, BI-RAD 1 RECOMMENDATION: Routine screening mammogram of both breasts in 1 year.
== END | disposition home or self-care (01) ==
LOC: RADMAMWWP 13:32
PROVIDERS: ATTEND Family Medicine
DX: Z12.31 Encounter for screening mammogram for malignant neoplasm of breast (principal); Z00.00 Encounter for general adult medical examination without abnormal findings; E03.9 Hypothyroidism, unspecified
CPT/HCPCS: 77063; 77067; 80053; 80061; 81003; 84439; 84443; 84481; 85025

== ENCOUNTER → 2020-07-08 | Outpatient (CLI) | payer BC ==
--- NOTE | 2020-07-12 10:19 | MM ---
Reason for exam: screening (asymptomatic). Last mammogram was performed 1 year and 1 month ago. History: Took hormonal contraceptives for 2 years. Taking estrogen for 6 months. Physical Findings: A clinical breast exam by your physician is recommended on an annual basis and results should be correlated with mammographic findings. MG 3D Screening Mammo W/Cad Bilateral CC and MLO view(s) were taken. Prior study comparison: June 12, 2019, bilateral MG 3d screening mammo w/cad. February 13, 2018, bilateral MG 3d screening mammo w/cad. The breast tissue is heterogeneously dense. This may lower the sensitivity of mammography. Dense tissues are present anteriorly on a background of scattered densities. No significant changes when compared with prior studies. ASSESSMENT: Negative, BI-RAD 1 RECOMMENDATION: Routine screening mammogram of both breasts in 1 year.
== END | disposition home or self-care (01) ==
LOC: RADMAMWWP 13:29
PROVIDERS: ATTEND Family Medicine
DX: Z12.31 Encounter for screening mammogram for malignant neoplasm of breast (principal)
CPT/HCPCS: 77063; 77067

== ENCOUNTER → 2021-08-01 | Outpatient (CLI) | payer BC ==
--- NOTE | 2021-08-03 12:35 | MM ---
Reason for exam: screening (asymptomatic). Last mammogram was performed 1 year and 1 month ago. History: Took hormonal contraceptives for 2 years. Taking estrogen for 1 year 6 months. Taking other hormone for 1 year. Physical Findings: A clinical breast exam by your physician is recommended on an annual basis and results should be correlated with mammographic findings. MG 3D Screening Mammo W/Cad Bilateral CC and MLO view(s) were taken. Prior study comparison: July 08, 2020, bilateral MG 3d screening mammo w/cad. June 12, 2019, bilateral MG 3d screening mammo w/cad. There are scattered fibroglandular densities. No significant changes when compared with prior studies. ASSESSMENT: Benign, BI-RAD 2 RECOMMENDATION: Routine screening mammogram of both breasts in 1 year.
== END | disposition home or self-care (01) ==
LOC: RADMAMWWP 13:59
PROVIDERS: ATTEND Family Medicine
DX: Z12.31 Encounter for screening mammogram for malignant neoplasm of breast (principal)
CPT/HCPCS: 77063; 77067

== ENCOUNTER → 2021-09-18 | Outpatient (CLI) | payer BC ==
--- NOTE | 2021-09-18 08:42 | CT ---
EXAMINATION TYPE: CT sinus wo con DATE OF EXAM: 09/18/2021 COMPARISON: No previous CT scan is available for comparison HISTORY: Chronic sinusitis CT DLP: 686.5 mGycm. Automated Exposure Control for Dose Reduction was Utilized. TECHNIQUE: CT scan of the sinuses is performed without contrast, axial images are obtained, coronal r eformatted images are also reviewed. FINDINGS: Slightly deviated bony nasal septum convex to the right side. Left middle tammy bullosa with a later al bone defect. Unremarkable inferior turbinates. Minimal mucosal thickening of the inferior aspect o f the right nasal fossa. Previous surgery with bilateral uncinectomies, partial ethmoidectomy and maxillary antrostomies. Saldivar nt antrostomies. Minimal mucosal thickening of the alveolar recesses of the maxillary sinuses. Minima l mucosal thickening of the right sphenoid sinus compartment. Otherwise unremarkable sphenoid sinus, remainder of the ethmoid air cells and frontal sinus. Patent s phenoethmoidal recesses. Clear visualized portion of the mastoid air cells. Unremarkable visualized p ortion of the brain and orbits. IMPRESSION: Postsurgical changes as described above. Minimal mucosal thickening of the maxillary sinuses and righ t sphenoid sinus compartment. Clear frontal sinus and remainder of the ethmoid air cells.
== END | disposition home or self-care (01) ==
LOC: RADCTMAIN 07:46
PROVIDERS: ATTEND Otolaryngology
DX: J32.9 Chronic sinusitis, unspecified (principal)
CPT/HCPCS: 70486

== ENCOUNTER → 2022-09-26 | Outpatient (CLI) | payer BC ==
[2022-09-26 16:27] VITALS: BP 104/73; PULSE 89; TEMP 98.5; BMI 32.5
--- NOTE | 2022-09-26 16:55 | P.HPBAR ---
Bariatric H&P - History & Physicial H&P Date: 09/26/22 History & Physicial: Visit/CC: lap band Patient initial contact: Initial weight: 90.673 kg Initial weight in pounds: 199.90 Height: 5 ft 3.5 in Initial BMI: 34.8 Last weight: Current weight: 84.822 kg Current weight in pounds: 187.00 Current BMI: 32.5 [place] body weight (based on NIH guidelines): 53.297 kg Excess body weight loss: 15.6% The patient is a 57 year-old F who presents for Bariatric Assessment. Moderate weight gain due to hormones. Had 6 mL down to 5 mL. One mL removed. Past Medical History Past Medical History: Asthma, Fibromyalgia, GERD/Reflux, Thyroid Disorder Additional Past Medical History / Comment(s): MIGRAINE,GASTRIC ULCER,IBS,CARPEL TUNNEL PITER HANDS & ELBOWS, BACK SPASMS, RUPTURED LUMBAR DISC,HEART MURMUR, LOW B/P,REDUNDANT MITRAL VALVE,BRONCHITIS,URETHRAL DILATATION, CHRONIC CYSTITIS ASCHILD,ROSACEA,ARTHRITIS,MENSTRUAL DISORDER, tremors of UKO (as of 07/10/[address] worked up with Dr[address] Jensen) History of Any Multi-Drug Resistant Organisms: None Reported Past Surgical History: Bladder Surgery, Section, Cholecystectomy, Hysterectomy, Tonsillectomy, Tubal Ligation Additional Past Surgical History / Comment(s): LAP BAND 2010,NASAL SURGERY,CERVICAL FUSION X2,PAIN CLINIC PROCEDURES, HYST 02/04/14 Past Anesthesia/Blood Transfusion Reactions: Motion Sickness, Postoperative Nausea & Vomiting (PONV) Past Psychological History: Anxiety, Depression Smoking Status: Never smoker Past Alcohol Use History: None Reported Past Drug Use History: None Reported - Past Family History Mother Family Medical History: No Reported History Surgical - Exam Vital Signs Temp Pulse BP 98.5 F 89 104/73 09/26/22 16:18 09/26/22 16:18 09/26/22 16:18 Bariatric Checklist Checklist: Plan: Checklist: EGD: 1. Hiatal hernia: 2. H. Pylori: HgbA1c: Vitamin D: Smoking: Never smoker Primary care physician referral: zana larson Psychiatry clearance: Cardiology clearance: Sleep study: Diet journal: VTE risk score: VTE risk level: Rehab needs at discharge:
== END ==
LOC: BARWHC3 15:38
PROVIDERS: ATTEND Surgery Plastic and Reconstructive Surgery
DX: E66.01 Morbid (severe) obesity due to excess calories (principal); Z68.32 Body mass index [BMI] 32.0-32.9, adult; J45.909 Unspecified asthma, uncomplicated; M79.7 Fibromyalgia; K21.9 Gastro-esophageal reflux disease without esophagitis; Z91.048 Other nonmedicinal substance allergy status; Z88.1 Allergy status to other antibiotic agents; Z88.5 Allergy status to narcotic agent; Z91.011 Allergy to milk products; Z91.040 Latex allergy status; Z88.0 Allergy status to penicillin; Z88.6 Allergy status to analgesic agent; Z88.8 Allergy status to other drugs, medicaments and biological substances
CPT/HCPCS: 99212

== ENCOUNTER → 2022-12-05 | Outpatient (CLI) | payer BC ==
--- NOTE | 2022-12-06 08:40 | MM ---
Reason for Exam: Screening (asymptomatic). Last mammogram was performed 1 year(s) and 4 month(s) ago. Patient History: Menarche at age 13. First Full-Term at age 25. Hysterectomy at age 48. Postmenopausal. Estrogen for 1 year, 6 months. Patient used Hormonal Contraceptives for 2 years. Risk Values: Asmita 5 year model risk: 1.4%. NCI Lifetime model risk: 8.7%. Prior Study Comparison: 06/12/2019 Bilateral Screening Mammogram, [facility]. 07/08/2020 Bilateral Screening Mammogram, [facility]. 08/01/2021 Bilateral Screening Mammogram, [facility]. Tissue Density: There are scattered fibroglandular densities. Findings: Analyzed By CAD. There is no suspicious group of microcalcifications or new suspicious mass in either breast. Overall Assessment: Negative, BI-RAD 1 Management: Screening Mammogram of both breasts in [address] [facility] will attempt to contact patient to return for supplemental views and ultrasound if indicated. Patient should continue monthly self-breast exams. A clinical breast exam by your physician is recommended on an annual basis. This exam should not preclude additional follow-up of suspicious palpable abnormalities. Note on Asmita scores and lifetime risk: 1. A Asmita score greater than 3% is considered moderate risk. If this is the case, consider specialist referral to assess eligibility for a risk reducing agent. 2. If overall lifetime risk for the development of breast cancer is 20% or higher, the patient may qualify for future screening with alternating mammogram and breast MRI. Electronically signed and approved by: Jason Hernandez DO
== END | disposition home or self-care (01) ==
LOC: RADMAMWWP 16:29
PROVIDERS: ATTEND Family Medicine
DX: Z12.31 Encounter for screening mammogram for malignant neoplasm of breast (principal); Z78.0 Asymptomatic menopausal state
CPT/HCPCS: 77063; 77067

== ENCOUNTER 2023-01-02 21:54 | Emergency (ER) | payer BC ==
--- NOTE | 2023-01-02 22:15 | ED ---
General Adult HPI - General Source: patient Mode of arrival: wheelchair Limitations: no limitations <Annalee Otto - Last Filed: 01/02/23 22:14> <Gina Cole - Last Filed: 01/05/23 10:35> - General Stated complaint: Migraine Time Seen by Provider: 01/03/23 01:50 - History of Present Illness Initial comments: 57-year-old female presenting with chief complaint of migraine. Migraine has been ongoing for a few days. She also admits to nausea. States that because the nausea she has not taken her psychiatric medication in 3 days. No chest pain, difficulty breathing, abdominal pain. (Annalee Otto) 57-year-old female presents to the emergency department reporting nausea. States that 2 days ago she had a migraine for which she took one of her abortive migraine medications she is prescribed. She did not realize that this medication interacts with her psychiatric medications. Since she took the migr roopa medication she has had intractable nausea and vomiting. Cannot hold down any food or drink. Has not attempted to take anything for nausea. Denies fevers. No sick contacts. No chest pain or shortness of breath. No abdominal pain. No other alleviating, precipitating or modifying factors (Gina Cole) - Related Data Home Medications Medication Instructions Recorded Confirmed Acetaminophen [Tylenol] 650 mg PO Q4H PRN 01/29/14 09/26/22 Levothyroxine Sodium [Synthroid] 50 mcg PO HS 01/29/14 09/26/22 SUMAtriptan succinate [Imitrex] 100 mg PO DIRECTED PRN 01/29/14 09/26/22 diazePAM [Valium] 5 mg PO DAILY PRN 01/29/14 09/26/22 diphenhydrAMINE [Benadryl] 25 mg PO HS 01/29/14 09/26/22 traMADol HCl [Ultram] 50 mg PO BID 01/29/14 09/26/22 Albuterol Sulfate [Proventil Hfa] 1 - 2 puff INHALATION Q6HR PRN 08/25/14 0 09/26/22 Esomeprazole Magnesium [NexIUM] 20 mg PO DAILY 01/19/15 09/26/22 Nystatin 100,000 Unit/gm Powd 1 applic TOPICAL BID PRN 02/17/18 09/26/22 [Mycostatin Powder] rOPINIRole HCL [Requip Xl] 4 mg PO HS 02/17/18 09/26/22 Desvenlafaxine Succinate [Pristiq] 75 mg PO DAILY 09/26/22 09/26/22 Glucosa Pineda 2Kcl/Chondroitin Pineda 1 each PO DAILY 09/26/22 09/26/22 [Glucosamine-Chondroitin Cap] Levocetirizine Dihydrochloride 5 mg PO DAILY 09/26/22 09/26/22 [Xyzal] Previous Rx's Medication Instructions Recorded Metoclopramide [Reglan] 10 mg PO TID PRN #15 tab 01/03/23 Allergies Allergy/AdvReac Type Severity Reaction Status Date / Time adhesive Allergy Rash/Hives Verified 02/17/18 13:06 cephalexin monohydrate Allergy Rash/Hives Verified 02/17/18 13:06 [From Keflex] codeine Allergy INCREASED Verified 02/17/18 13:06 PAIN AND DELUSIONS lactose Allergy Nausea & Verified 02/17/18 13:06 Vomiting & Diarrhea latex Allergy Rash/Hives Verified 02/17/18 13:06 levofloxacin [From Levaquin] Allergy SOB AND Verified 02/17/18 13:06 RAPID HEART RATE morphine Allergy Dyspnea Verified 02/17/18 13:06 nortriptyline HCl Allergy Rapid Verified 02/17/18 13:06 [From Pamelor] Heart Rate Penicillins Allergy Rash/Hives Verified 02/17/18 13:06 pregabalin [From Lyrica] Allergy B/P DROPS Verified 02/17/18 13:06 tetracycline [Tetracycline] Allergy VAGINAL Verified 02/17/18 13:06 BLEEDING AND BLUISH COLORATION TO SKIN triamcinolone acetonide Allergy Rash/Hives Verified 02/17/18 13:06 [From Kenalog] montelukast sodium AdvReac MIGRAINES Verified 02/17/18 13:06 [From Singulair] Review of Systems ROS Other: All systems not noted in ROS Statement are negative. <Annalee Otto - Last Filed: 01/02/23 22:14> ROS Other: All systems not noted in ROS Statement are negative. <Gina Cole - Last Filed: 01/05/23 10:35> ROS Statement: Those systems with pertinent positive or pertinent negative responses have been documented in the HPI. Past Medical History Past Medical History: Asthma, Fibromyalgia, GERD/Reflux, Thyroid Disorder Additional Past Medical History / Comment(s): MIGRAINE,GASTRIC ULCER,IBS,CARPEL TUNNEL PITER HANDS & ELBOWS, BACK SPASMS, RUPTURED LUMBAR DISC,HEART MURMUR, LOW B/P,REDUNDANT MITRAL VALVE,BRONCHITIS,URETHRAL DILATATION, CHRONIC CYSTITIS ASCHILD,ROSACEA,ARTHRITIS,MENSTRUAL DISORDER, tremors of UKO (as of 07/10/[address] being worked up with Dr[address] Jensen) History of Any Multi-Drug Resistant Organisms: None Reported Past Surgical History: Bladder Surgery, Section, Cholecystectomy, Hysterectomy, Tonsillectomy, Tubal Ligation Additional Past Surgical History / Comment(s): LAP BAND 2011,NASAL SURGERY,CERVICAL FUSION X2,PAIN CLINIC PROCEDURES, HYST 02/04/14 Past Anesthesia/Blood Transfusion Reactions: Motion Sickness, Postoperative Nausea & Vomiting (PONV) Past Psychological History: Anxiety, Depression Smoking Status: Never smoker Past Alcohol Use History: None Reported Past Drug Use History: None Reported - Past Family History Mother Family Medical History: No Reported History <Annalee Otto - Last Filed: 01/02/23 22:14> General Exam <Annalee Otto - Last Filed: 01/02/23 22:14> General appearance: alert, in no apparent distress Head exam: Present: atraumatic, normocephalic, normal inspection Eye exam: Present: normal appearance, PERRL, EOMI. Absent: scleral icterus, conjunctival injection, periorbital swelling ENT exam: Present: normal exam, mucous membranes moist Neck exam: Present: normal inspection. Absent: tenderness, meningismus, lymphadenopathy Respiratory exam: Present: normal lung sounds bilaterally. Absent: respiratory distress, wheezes, rales, rhonchi, stridor Cardiovascular Exam: Present: regular rate, normal rhythm, normal heart sounds. Absent: systolic murmur, diastolic murmur, rubs, gallop, clicks GI/Abdominal exam: Present: soft, normal bowel sounds. Absent: distended, tenderness, guarding, rebound, rigid Extremities exam: Present: normal inspection, full ROM, normal capillary refill. Absent: tenderness, pedal edema, joint swelling, calf tenderness Back exam: Present: normal inspection Neurological exam: Present: alert, oriented X3, CN II-XII intact Psychiatric exam: Present: normal affect, normal mood Skin exam: Present: warm, dry, intact, normal color. Absent: rash <Gina Cole - Last Filed: 01/05/23 10:35> - General Exam Comments Initial Comments: Visual Physical Exam Vital signs reviewed General: Well-appearing, nontoxic, no acute distress. Head: Normocephalic, atraumatic Eyes: PERRLA, EOMI ENT: Airway patent Chest: Nonlabored breathing Skin: No visual rash, normal skin tone Neuro: Alert and oriented 3 Musculoskeletal: No gross abnormalities (Annalee Otto) Course Vital Signs 01/02/23 01/03/23 22:12 02:04 Temperature 98 F 99 F Pulse Rate 109 H Pulse Rate [ 112 H Left Supine Pulse Oximetery ] Respiratory 20 15 Rate Blood Pressure 112/78 Blood Pressure 91/58 [Left Arm] O2 Sat by Pulse 98 97 Oximetry Medical Decision Making <Annalee Otto - Last Filed: 01/02/23 22:14> - Lab Data Result diagrams: 01/03/23 02:40 01/03/23 02:40 <Gina Cole - Last Filed: 01/05/23 10:35> - Medical Decision Making I conducted the quick note portion of the this visit. Signed Annalee Otto PAC (Annalee Otto) Was pt. sent in by a medical professional or institution (ELKE Byrd, CIRCUS TRAIN SUPERVISOR, urgent care, hospital, or custodial...) When possible be specific @ -No Did you speak to anyone other than the patient for history (EMS, parent, family, police, friend...)? What history was obtained from this source @ -No Did you review nursing and triage notes (agree or disagree)? Why? @ -I reviewed and agree with nursing and triage notes Were old charts reviewed (outside hosp., previous admission, EMS record, old EKG, old radiological studies, urgent care reports/EKG's, custodial records)? Report findings @ -No old charts were reviewed Differential Diagnosis (chest pain, altered mental status, abdominal pain women, abdominal pain men, vaginal bleeding, weakness, fever, dyspnea, syncope, headache, dizziness, GI bleed, back pain, seizure, CVA, palpatations, mental health, musculoskeletal)? @ -Appendicitis, Cholecystitis, diverticulosis, ischemic bowel, pancreatitis, hepatitis, UTI, gastroenteritis, AAA, incarcerated hernia, bowel obstruction, constipation, inflammatory bowel, hepatitis, peptic ulcer disease, splenic infarction, perforated viscus, vulvitis, ovarian torsion, PID, kidney stone, placenta abruption, this is not meant to be an all-inclusive list EKG interpreted by me (3pts min.). @ -Not completed X-rays interpreted by me (1pt min.). @ -None done CT interpreted by me (1pt min.). @ -None done U/S interpreted by me (1pt. min.). @ -None done What testing was considered but not performed or refused? (CT, X-rays, U/S, labs)? Why? @ -None What meds were considered but not given or refused? Why? @ -None Did you discuss the management of the patient with other professionals (professionals i.e. , PA, CIRCUS TRAIN SUPERVISOR, lab, RT, psych nurse, psychiatric social worker, collections rep, teacher, job placement officer, leather case finisher)? Give summary @ -No Was smoking cessation discussed for >3mins.? @ -No Was critical care preformed (if so, how long)? @ -No Were there social determinants of health that impacted care today? How? (Homelessness, low income, unemployed, alcoholism, drug addiction, transportation, low edu. Level, literacy, decrease access to med. care, alf, rehab)? @ -No Was there de-escalation of care discussed even if they declined (Discuss DNR or withdrawal of care, Hospice)? DNR status @ -No What co-morbidities impacted this encounter? (DM, HTN, Smoking, COPD, CAD, Cancer, CVA, ARF, Chemo, Hep., AIDS, mental health diagnosis, sleep apnea, morbid obesity)? @ -Migraines Was patient admitted / discharged? Hospital course, mention meds given and route, prescriptions, significant lab abnormalities, going to OR and other pertinent info. @ -Upon arrival patient was placed into room 14. History and physical exam was performed. IV is established. Patient given antiemetics and fluids. Reevaluated and reports that she has remarkable improvement in her symptoms. Patient will be discharged home. Needs follow-up with her primary care doctor to discuss further treatment options and alternatives for her migraines. Return for any new or worsening symptoms. Patient was agreeable to the plan and she was discharged in stable condition Undiagnosed new problem with uncertain prognosis? @ -yes Drug Therapy requiring intensive monitoring for toxicity (Heparin, Nitro, Insulin, Cardizem)? @ -No Were any procedures done? @ -No Diagnosis/symptom? @ -Acute nausea and vomiting Acute, or Chronic, or Acute on Chronic? @ -Acute Uncomplicated (without systemic symptoms) or Complicated (systemic symptoms)? @ -Complicated Side effects of treatment? @ -No Exacerbation, Progression, or Severe Exacerbation? @ -No Poses a threat to life or bodily function? How? (Chest pain, USA, IA, pneumonia, PE, COPD, DKA, ARF, appy, cholecystitis, CVA, Diverticulitis, Homicidal, Suicidal, threat to staff... and all critical care pts) @ -No (Gina Cole) - Lab Data Lab Results 01/03/23 01/03/23 Range/Units 02:40 02:40 WBC 9.5 (3.8-10.6) k/uL RBC 5.23 (3.80-5.40) m/uL Hgb 16.2 H (11.4-16.0) gm/dL Hct 49.3 H (34.0-46.0) % MCV 94.3 (80.0-100.0) fL MCH 31.0 (25.0-35.0) pg MCHC 32.9 (31.0-37.0) g/dL RDW 12.6 (11.5-15.5) % Plt Count 271 (150-450) k/uL MPV 7.7 Neutrophils % 83 % Lymphocytes % 11 % Monocytes % 4 % Eosinophils % 1 % Basophils % 0 % Neutrophils # 7.9 H (1.3-7.7) k/uL Lymphocytes # 1.0 (1.0-4.8) k/uL Monocytes # 0.4 (0-1.0) k/uL Eosinophils # 0.1 (0-0.7) k/uL Basophils # 0.0 (0-0.2) k/uL Sodium 137 (137-145) mmol/L Potassium 4.3 (3.5-5.1) mmol/L Chloride 104 (98-107) mmol/L Carbon Dioxide 25 (22-30) mmol/L Anion Gap 8 mmol/L BUN 15 (7-17) mg/dL Creatinine 0.80 (0.52-1.04) mg/dL Est GFR (CKD-EPI)AfAm >90 (>60 ml/min/1.73 sqM) Est GFR (CKD-EPI)NonAf 82 (>60 ml/min/1.73 sqM) Glucose 94 (74-99) mg/dL Calcium 9.5 (8.4-10.2) mg/dL Total Bilirubin 0.6 (0.2-1.3) mg/dL AST 32 (14-36) U/L ALT 36 H (4-34) U/L Alkaline Phosphatase 98 (38-126) U/L C-Reactive Protein <0.5 (<1.0) mg/dL Total Protein 7.2 (6.3-8.2) g/dL Albumin 4.2 (3.5-5.0) g/dL Disposition <Annalee Otto - Last Filed: 01/02/23 22:14> Is patient prescribed a controlled substance at d/c from ED?: No Time of Disposition: 03:08 <Gina Cole - Last Filed: 01/05/23 10:35> Clinical Impression: Nausea Disposition: HOME SELF-CARE Condition: Stable Instructions (If sedation given, give patient instructions): Acute Nausea and Vomiting (DC) Additional Instructions: Please take the nausea medication as needed. Follow-up with your doctor and return for any new or worsening symptoms Prescriptions: Metoclopramide [Reglan] 10 mg PO TID PRN #15 tab PRN Reason: Nausea Referrals: Lamine Martin MD [Primary Care Provider] - 1-2 days
[2023-01-03] MEDS ORDERED: diphenhydrAMINE 50 MG/ML 1 ML VIAL IVP STA (01:58)
[2023-01-03] MEDS ORDERED: SODIUM CHLORIDE 0.9% 1,000 ML IV ONE (01:58)
[2023-01-03] MEDS ORDERED: METOCLOPRAMIDE 5 MG/ML 2 ML VIAL IVP STA (01:58)
[2023-01-03 02:06] VITALS: BP 91/58; PULSE 112; RESP 15; TEMP 99
[2023-01-03 02:50] LABS: Basophils % (A) 0 %; Eosinophils # (A) 0.1 k/uL (0-0.7); Eosinophils % (A) 1 %; HCT 49.3 % (34.0-46.0); HGB 16.2 gm/dL (11.4-16.0); Lymphocytes % (A) 11 %; MCHC 32.9 g/dL (31.0-37.0); MCV 94.3 fL (80.0-100.0); Mean Platelet Volume 7.7; Monocytes # (A) 0.4 k/uL (0-1.0); Monocytes % (A) 4 %; Neutrophils # (A) 7.9 k/uL (1.3-7.7); Neutrophils % (A) 83 %; Platelet Count 271 k/uL (150-450); RBC 5.23 m/uL (3.80-5.40); RDW 12.6 % (11.5-15.5); WBC 9.5 k/uL (3.8-10.6)
[2023-01-03 02:57] LABS: ALT 36 U/L (4-34); AST 32 U/L (14-36); African American GFR (CKD) >90 (>60 ml/min/1.73 sqM); Albumin 4.2 g/dL (3.5-5.0); Alkaline Phosphatase 98 U/L (38-126); Anion Gap 8 mmol/L; Blood Urea Nitrogen 15 mg/dL (7-17); Calcium 9.5 mg/dL (8.4-10.2); Carbon Dioxide 25 mmol/L (22-30); Chloride 104 mmol/L (98-107); Glucose 94 mg/dL (74-99); Non-African American GFR(CKD) 82 (>60 ml/min/1.73 sqM); Potassium 4.3 mmol/L (3.5-5.1); Sodium 137 mmol/L (137-145); Total Bilirubin 0.6 mg/dL (0.2-1.3); Total Protein 7.2 g/dL (6.3-8.2)
[2023-01-03 03:19] LABS: C Reactive Protein <0.5 mg/dL (<1.0)
== END 2023-01-03 03:44 | disposition home or self-care (01) ==
LOC: EC 21:54
DX: R11.0 Nausea (principal); J45.909 Unspecified asthma, uncomplicated; K21.9 Gastro-esophageal reflux disease without esophagitis; E07.9 Disorder of thyroid, unspecified; F32.A Depression, unspecified; F41.9 Anxiety disorder, unspecified; Z79.890 Hormone replacement therapy; Z79.899 Other long term (current) drug therapy; Z88.0 Allergy status to penicillin; Z88.1 Allergy status to other antibiotic agents; Z88.5 Allergy status to narcotic agent; Z88.8 Allergy status to other drugs, medicaments and biological substances; Z91.011 Allergy to milk products; Z91.09 Other allergy status, other than to drugs and biological substances
CPT/HCPCS: 36415; 80053; 85025; 86140; 99284; 96374; 96375; 96361; J1200; J2765

== ENCOUNTER → 2023-03-04 | Outpatient (CLI) | payer BC ==
[2023-03-04 16:45] LABS: ALT 31 U/L (8-44); AST 25 U/L (13-35); Albumin 4.2 d/dL (3.8-4.9); Albumin/Globulin Ratio 1.91 Ratio (1.60-3.17); Alkaline Phosphatase 86 U/L (41-126); BUN/Creat Ratio 21.56 Ratio (12.00-20.00); Blood Urea Nitrogen 19.4 mg/dL (9.0-27.0); Calcium 9.3 mg/dL (8.7-10.3); Carbon Dioxide 26.6 mmol/L (21.6-31.8); Chloride 105 mmol/L (96-109); Globulin 2.2 d/dL (1.6-3.3); Glucose 84 mg/dL (70-110); LDL Cholesterol,Calculated 114.7 mg/dL (0.0-131.0); Potassium 4.6 mmol/L (3.5-5.5); Sodium 141 mmol/L (135-145); Total Bilirubin 0.3 mg/dL (0.3-1.2); Total Protein 6.4 d/dL (6.2-8.2); VLDL Calculation 9.08 mg/dL (5.00-40.00)
[2023-03-04 17:11] LABS: HCT 44.6 % (37.2-46.3); HGB 14.2 d/dL (12.0-15.0); MCH 30.5 pg (27.0-32.0); MCHC 31.8 d/dL (32.0-37.0); MCV 95.7 FL (80.0-97.0); Mean Platelet Volume 10.6 FL (9.5-12.2); NRBC Per 100 WBC 0 X 10*3/uL (0.00-0.01); Platelet Count 241 X 10*3/uL (140-440); RBC 4.66 X 10*6/uL (4.10-5.20); RDW 13.1 % (11.5-14.5); WBC 6.26 X 10*3/uL (4.50-10.00)
== END | disposition home or self-care (01) ==
LOC: LABWHC1 11:19
PROVIDERS: ATTEND Family Medicine
DX: Z00.00 Encounter for general adult medical examination without abnormal findings (principal); E55.9 Vitamin D deficiency, unspecified; E03.9 Hypothyroidism, unspecified
CPT/HCPCS: 36415; 80053; 80061; 82306; 84436; 84439; 84443; 84480; 84481; 85027

== ENCOUNTER → 2023-07-22 | Outpatient (CLI) | payer BC ==
[2023-07-22 10:14] VITALS: BP 138/78; PULSE 99; RESP 15; TEMP 98.7
--- NOTE | 2023-07-22 12:47 | P.PAINPG ---
PQRS Measure Charge Sheet Comment: HISTORY OF PRESENT ILLNESS: A 58 yr old female as a referral from Dr Martin presents today w severe and chronic neck pain secondary to post laminectomy syndrome for evaluation. Pt states pain level is provoked at 10 /10 in intensity, constant, localized in the L cervical spine, predominantly axial, tight in character w occasional shooting pain towards back of the L ear. Pain is provoked by forward flexion. Pain is alleviated by medications (Tramadol, Valium Ibu), PT (cervical) in 2019, manual massage, heat, repositioning and rest. Cervical disability score at 29. PMH: OA, Asthma, Fibromyalgia, GERD, Hypothyroid Disorder, IBS, MDD/ Anxiety PSH: BL CTS, Urethral Dilatation, Bladder Surgery, Lap Band (2010), Section, Cholecystectomy, Hysterectomy (2013), Tonsillectomy, Tubal Ligation, Nasal Surgery, Cervical Fusion x2. CESIs SH: Never smoker, No ETOH abuse, No illicit drug use FH: Mo- No Reported History All: See list Meds: See list REVIEW OF ORGAN SYSTEMS: CONSTITUTIONAL: No fevers or chills. No recent weight loss. NEUROLOGICAL: + numbness and tingling along the distal extremities. No seizure disorders or headaches. MUSCULOSKELETAL: + pain PSYCHIATRIC: Denies current depression or suicidal thoughts. Physical Examinations : Constitutional : Cooperative , not in acute distress . Neurologic : Cranial nerve II to XII intact. No focal neurological deficits. Psychiatric : alert & oriented x 3. Matching mood & appropriate affect. Judgment & insight intact. Musculoskeletal : Cervical Spine +BL CARLOS TTP Motor strength in the deltoid and biceps: Normal right side. Normal Left side Motor strength biceps and the wrist extensors: Normal right side . Normal left side Motor strength in the triceps muscle: Normal right side. Normal left side Deep tendon reflexes: Normal at the biceps. Normal at Brachioradialis. Normal at triceps Vertebral body tenderness to deep palpation over Cervical facet loading test: positive bilaterally Spurling test: positive bilaterally Neck distraction test: positive bilaterally Leighann sign: positive bilaterally Lumbar spine Motor strength lower extremities ,thigh and legs 5/5 Right side , 5/5 Left side Deep tendon reflexes : Normal Knee Jerk. Normal Ankle Jerk Vertebral body tenderness over Hooper Test positive Lumbar facet Loading Test: positive Ri ght / positive Left Range of motion of the lumbar spine Flexion 30 degrees, extension 10 degrees Straight Leg Raise test: Left/ Right positive at degrees Akin test: positive right / positive left. Severe tenderness over the Sacroiliac joint on the Right / Left sides Gaenslen test: positive bilaterally Seated flexion test: positive bilaterally. Sacral spine : Severe tenderness over the Sacroiliac joint: right side / left side Range of motion: Flexion of the lumbar spine <60 degrees Range of motion: Extension of the lumbar spine <20 degrees Gaenslen's Test positive Akin test: positive right side / left side Thigh Thrust Test Sacral Thrust Test Imaging: MRI noncontrast of the cervical spine from 09/15/21 reviewed Awaiting MRI non contrast of the brain Assessment/ Plan : Cervical post laminectomy syndrome Recommendation of BL CARLOS injections #1. May need a series of injections for optimal pain relief. Risks, benefits of procedure discussed and patient verbalized understanding. Admits to anti- coagulant use or medical history of diabetes. Protocol for discontinuation/ continuation of medications theresa procedure discussed. Minimal anesthesia provided, if clinically indicated, consisting of Versed and Fentanyl. All questions answered. I have spent greater than 30 minutes on patient care today. Dr Can was available by phone for the evaluation of this patient. The time was used to review the medical records including relevant urine studies and Prescription history (MAPs), review of the available imaging, evaluation and examination of the patient, coordination of care with the medical staff and if applicable referring physicians, as well as creation of the medical record PQRS Narrative: Smoking Status Never smoker Home Medications: Ambulatory Orders Acetaminophen [Tylenol] 650 mg PO Q4H PRN 01/29/14 Levothyroxine Sodium [Synthroid] 50 mcg PO HS 01/29/14 SUMAtriptan succinate [Imitrex] 100 mg PO DIRECTED PRN 01/29/14 diazePAM [Valium] 5 mg PO DAILY PRN 01/29/14 diphenhydrAMINE [Benadryl] 25 mg PO HS 01/29/14 traMADol HCl [Ultram] 50 mg PO BID 01/29/14 Albuterol Sulfate [Proventil Hfa] 1 - 2 puff INHALATION Q6HR PRN 08/25/14 Esomeprazole Magnesium [NexIUM] 20 mg PO DAILY 01/19/15 Nystatin 100,000 Unit/gm Powd [Mycostatin Powder] 1 applic TOPICAL BID PRN 02/17/18 rOPINIRole HCL [Requip Xl] 4 mg PO HS 02/17/18 Desvenlafaxine Succinate [Pristiq] 75 mg PO DAILY 09/26/22 Glucosa Pineda 2Kcl/Chondroitin Pineda [Glucosamine-Chondroitin Cap] 1 each PO DAILY Levocetirizine Dihydrochloride [Xyzal] 5 mg PO DAILY 09/26/22 Metoclopramide [Reglan] 10 mg PO TID PRN #15 tab 01/03/23 Controlled Substance Measures - Controlled Substance Measures Is patient prescribed a controlled substance at discharge?: No
== END ==
LOC: PNWHC3 09:40
PROVIDERS: ATTEND Specialist
DX: M96.1 Postlaminectomy syndrome, not elsewhere classified (principal); M54.12 Radiculopathy, cervical region; M19.90 Unspecified osteoarthritis, unspecified site; J45.909 Unspecified asthma, uncomplicated; K21.9 Gastro-esophageal reflux disease without esophagitis; E03.9 Hypothyroidism, unspecified; K58.9 Irritable bowel syndrome, unspecified; F32.9 Major depressive disorder, single episode, unspecified; F41.9 Anxiety disorder, unspecified; Z87.39 Personal history of other diseases of the musculoskeletal system and connective tissue; Z79.890 Hormone replacement therapy; Z79.899 Other long term (current) drug therapy; Z91.048 Other nonmedicinal substance allergy status; Z88.1 Allergy status to other antibiotic agents; Z88.5 Allergy status to narcotic agent; Z91.018 Allergy to other foods; Z91.040 Latex allergy status; Z88.0 Allergy status to penicillin; Z88.8 Allergy status to other drugs, medicaments and biological substances
CPT/HCPCS: 99211

== ENCOUNTER → 2023-11-20 | Outpatient (CLI) | payer BC ==
[2023-11-20 10:26] VITALS: BP 115/72; PULSE 103; RESP 16
--- NOTE | 2023-11-20 14:48 | P.PAINPG ---
Objective - Vital Signs Vital signs: Vital Signs Temp Pulse 103 H 11/20/23 10:25 Resp 16 11/20/23 10:25 BP 115/72 11/20/23 10:25 Pulse Ox 94 L 11/20/23 10:25 FiO2 Intake & Output 11/19/23 11/20/23 11/20/23 18:59 06:59 18:59 Weight 92.986 kg PQRS Measure Charge Sheet Mode of Arrival: Ambulatory Comment: HISTORY OF PRESENT ILLNESS: A 58 yr old female presents today w severe and chronic neck pain secondary to post laminectomy syndrome for evaluation. Pt states pain level is provoked at 9 /10 in intensity, constant, localized in the L cervical spine, predominantly axial, tight in character w occasional shooting pain towards back of the L ear. Pain is provoked by forward flexion. Pain is alleviated by medications, PT (cervical) in 2019, manual massage, heat, repositioning and rest. Cervical di sability score at 29. Interventional procedures include ACF C5-C7 Medications include Tramadol, Valium REVIEW OF ORGAN SYSTEMS: CONSTITUTIONAL: No fevers or chills. No recent weight loss. NEUROLOGICAL: + numbness and tingling along the distal extremities. No seizure disorders or headaches. MUSCULOSKELETAL: + pain PSYCHIATRIC: Denies current depression or suicidal thoughts. Physical Examinations : Constitutional : Cooperative , not in acute distress . Neurologic : Cranial nerve II to XII intact. No focal neurological deficits. Psychiatric : alert & oriented x 3. Matching mood & appropriate affect. Judgment & insight intact. Musculoskeletal : Cervical Spine +BL CARLOS TTP Motor strength in the deltoid and biceps: Normal right side. Normal Left side Motor strength biceps and the wrist extensors: Normal right side . Normal left side Motor strength in the triceps muscle: Normal right side. Normal left side Deep tendon reflexes: Normal at the biceps. Normal at Brachioradialis. Normal at triceps Vertebral body tenderness to deep palpation over Cervical facet loading test: positive bilaterally Spurling test: positive bilaterally Neck distraction test: positive bilaterally Leighann sign: positive bilaterally Lumbar spine Motor strength lower extremities ,thigh and legs 5/5 Right side , 5/5 Left side Deep tendon reflexes : Normal Knee Jerk. Normal Ankle Jerk Vertebral body tenderness over Hooper Test positive Lumbar facet Loading Test: positive Right / positive Left Range of motion of the lumbar spine Flexion 30 degrees, extension 10 degrees Straight Leg Raise test: Left/ Right positive at degrees Akin test: positive right / positive left. Severe tenderness over the Sacroiliac joint on the Right / Left sides Gaenslen test: positive bilaterally Seated flexion test: positive bilaterally. Sacral spine : Severe tenderness over the Sacroiliac j oint: right side / left side Range of motion: Flexion of the lumbar spine <60 degrees Range of motion: Extension of the lumbar spine <20 degrees Gaenslen's Test positive Akin test: positive right side / left side Thigh Thrust Test Sacral Thrust Test Imaging: MRI noncontrast of the cervical spine from 09/15/21 reviewed MRI non contrast of the brain from 09/15/21 reviewed Assessment/ Plan : C5-C7 anterior cervical fusion w laminectomy syndrome Recommendation of BL CARLOS injections #1. May need a series of injections for optimal pain relief. Risks, benefits of procedure discussed and patient verbalized understanding. Admits to anti- coagulant use or medical history of diabetes. Protocol for discontinuation/ continuation of medications theresa pr ocedure discussed. All questions answered. I have spent greater than 30 minutes on patient care today. Dr Can was available by phone for the evaluation of this patient. The time was used to review the medical records including relevant urine studies and Prescription history (MAPs), review of the available imaging, evaluation and examination of the patient, coordination of care with the medical staff and if applicable referring physicians, as well as creation of the medical record PQRS Narrative: Smoking Status Never smoker Blood Pressure 115/72 Hx Alcohol Use (MH) No Home Medications: Ambulatory Orders Acetaminophen [Tylenol] 650 mg PO Q4H PRN 01/29/14 Levothyroxine Sodium [Synthroid] 50 mcg PO HS 01/29/14 SUMAtriptan succinate [Imitrex] 100 mg PO DIRECTED PRN 01/29/14 diazePAM [Valium] 5 mg PO DAILY PRN 01/29/14 diphenhydrAMINE [Benadryl] 25 mg PO HS 01/29/14 traMADol HCl [Ultram] 50 mg PO BID 01/29/14 Albuterol Sulfate [Proventil Hfa] 1 - 2 puff INHALATION Q6HR PRN 08/25/14 Esomeprazole Magnesium [NexIUM] 20 mg PO DAILY 01/19/15 Nystatin 100,000 Unit/gm Powd [Mycostatin Powder] 1 applic TOPICAL BID PRN 02/17/18 rOPINIRole HCL [Requip Xl] 4 mg PO HS 02/17/18 Desvenlafaxine Succinate [Pristiq] 75 mg PO DAILY 09/26/22 Glucosa Pineda 2Kcl/Chondroitin Pineda [Glucosamine-Chondroitin Cap] 1 each PO DAILY 09/26/22 Levocetirizine Dihydrochloride [Xyzal] 5 mg PO DAILY 09/26/22 Metoclopramide [Reglan] 10 mg PO TID PRN #15 tab 01/03/23 Controlled Substance Measures - Controlled Substance Measures Is patient prescribed a controlled substance at discharge?: No
== END ==
LOC: PNWHC3 10:15
PROVIDERS: ATTEND Specialist
DX: M96.1 Postlaminectomy syndrome, not elsewhere classified (principal); M43.22 Fusion of spine, cervical region; Z91.048 Other nonmedicinal substance allergy status; Z88.1 Allergy status to other antibiotic agents; Z88.5 Allergy status to narcotic agent; Z91.011 Allergy to milk products; Z91.040 Latex allergy status; Z88.8 Allergy status to other drugs, medicaments and biological substances; Z88.0 Allergy status to penicillin
CPT/HCPCS: 99211

== ENCOUNTER → 2023-12-19 | Day surgery (SDC) | payer BC ==
[2023-12-18 08:48] VITALS: BMI 36.3
[~2023-12-19] MED LIST changes: +DEXAMETHASONE SOD PHOSPHATE 10 MG/ML 1 ML VIAL ONE; -LIDOCAINE 1% 20 ML VIAL (10MG/ML) FOR IV START INTRADERMA PRN; +ROPIVACAINE 5MG/ML 20ML VIAL ONE
[2023-12-19 12:07] VITALS: TEMP 97.8
--- NOTE | 2023-12-19 12:38 | P.PCN ---
Description of Procedure: Preoperative diagnoses. Greater occipital neuralgia Postoperative diagnoses. Greater occipital neuralgia Procedure. Bilateral Greater occipital nerve block with local anesthetic and steroid. Anesthesia. Local infiltration of 1% lidocaine. Continuous pulse ox, EKG, blood pressure and verbal communication was maintained with the patient in the OR. . Estimated blood loss. Minimal. Procedure indication. The patient has a history of severe chronic neck pain ,and headache, diagnosed with occipital neuralgia. Exam was positive for severe tenderness over the occipital nerve, she will be a good candidate occipital nerve block. Patient failed conservative management. Discussed with the patient the procedure, alternative, complications including infection, bleeding, nerve damage, aggravation of pain all of which could be permanent. Patient understands and QUESTIONS were answered. Procedure description. After getting consent patient was taken to the OR , sitting position with head on a table . At the junction of RIGHT sternocleidomastoid muscle with trapezius muscle close to right superior nucheal line was identified, occipital artery was palpated. Just medial to the occipital artery 25-gauge needle attached to a syringe was introduced. Then after negative aspiration for heme and CSF and there was no paresthesia during the injection, 4 ml of Ropivacaine 0.5% and 10 mg of Decadron injected, the needle was removed. Entire same procedure was repeated for the LEFT Greater occipital nerve. The patient returned to supine position after the back was cleaned and a Band- Aid applied. Disposition. Patient tolerated the procedure well. No complication. Discharged home in stable condition.
[2023-12-19 12:51] VITALS: BP 112/77; PULSE 89; RESP 14
== END ==
LOC: ORPAIN 11:43
PROVIDERS: ATTEND Pain Medicine Interventional Pain Medicine
DX: M54.81 Occipital neuralgia (principal); Z91.040 Latex allergy status; Z88.8 Allergy status to other drugs, medicaments and biological substances
CPT/HCPCS: 64405; J1100; J2795

== ENCOUNTER → 2024-01-06 | Outpatient (CLI) | payer BC | LOC: PNWHC3 10:13 | PROVIDERS: ATTEND Specialist | DX: M54.81 Occipital neuralgia (principal); G44.86 Cervicogenic headache; Z91.048 Other nonmedicinal substance allergy status; Z88.1 Allergy status to other antibiotic agents; Z88.5 Allergy status to narcotic agent; Z91.040 Latex allergy status; Z88.0 Allergy status to penicillin; Z88.8 Allergy status to other drugs, medicaments and biological substances; Z91.011 Allergy to milk products | CPT/HCPCS: 99211 ==

== ENCOUNTER 2024-03-17 07:55 | Day surgery (SDC) | payer BC ==
[~2024-03-17 07:55] MED LIST changes: -DEXAMETHASONE SOD PHOSPHATE 10 MG/ML 1 ML VIAL ONE; -ROPIVACAINE 5MG/ML 20ML VIAL ONE
[2024-03-17 09:03] VITALS: TEMP 98.3
[2024-03-17] MEDS ORDERED: methylPREDNISolone ACETATE 40 MG/ML 1 ML VIAL ONE (09:53)
[2024-03-17] MEDS ORDERED: ROPIVACAINE 5MG/ML 20ML VIAL ONE (09:53)
--- NOTE | 2024-03-17 10:00 | P.PCN ---
Date of Procedure: 03/17/24 Procedure(s) Performed: Procedure= trigger point injections cervical paraspinal muscles bilaterally , 2 on the right side from C4 to T1, and 3 on the left side from C4 to T1 Preoperative diagnosis= 1-myofascial pain syndrome cervical paraspinal muscles 2-cervical degenerative disc disease 3-cervical facet arthropathy Postoperative diagnosis=Same as preop Diagnosis . Complication = none Condition= stable Anesthesia= none Indication for the procedure= patient complaining of chronic severe neck pain , examination was positive for multiple trigger point in the cervical paraspinal muscles bilaterally and patient diagnosed with myofascial pain syndrome and is here to have trigger point injections Description of the procedure= procedure risk and benefits discussed with the patient, including but not limited, risk of infection and bleeding, and ALLERGIC reaction to the medication and not complete pain relief and patient agreed with the preceding patient taken to the operating room, placed in sitting position or standard monitors applied to the patient then cervical area prepped with c hlorhexidine 3 times , then under sterile technique each of the trigger point that was marked in the preop holding area 2 on the right side cervical paraspinal muscles and 3 on the left side cervical paraspinal muscles each one of them injected with the 2 mL of the mixture of ropivacaine 0.5% 10 ML mixed with 40 mg of Depo-Medrol and 2 mL of the mixture injected at each trigger point after negative aspiration, using 25-gauge needle, injection done after negative aspiration under was no paresthesia during the injection patient tolerated the procedure well without any complications and he will follow up in the pain clinic in a few weeks
[2024-03-17 10:14] VITALS: RESP 18
[2024-03-17 10:17] VITALS: BP 100/65; PULSE 89
== END 2024-03-17 10:25 | disposition home or self-care (01) ==
LOC: ORPAIN 07:55
PROVIDERS: ATTEND Specialist
DX: M54.12 Radiculopathy, cervical region
CPT/HCPCS: 20553

== ENCOUNTER → 2024-04-02 | Outpatient (CLI) | payer BC ==
[2024-04-02 08:06] VITALS: BP 112/78; PULSE 76; RESP 16; TEMP 97.1
--- NOTE | 2024-04-06 07:37 | P.PAINPG ---
PQRS Measure Charge Sheet Comment: HISTORY OF PRESENT ILLNESS: A 58 yr old female presents today w severe and chronic neck pain secondary to occipital neuralgia, cervicogenic SALGADO, post laminectomy syndrome for evaluation s/p BL TPIs C4-T1 #1. Pt states she experienced 80 % pain relief x 2 wks s/p procedure. Pt states pain level is provoked at 3 /10 in intensity, constant, localized in the L cervical spine, predominantly axial, tight in character w occasional shooting pain towards back of the L ear. Pain is provoked by forward flexion. Pain is alleviated by medications, PT (cervical) in 2019, manual massage, heat, repositioning and rest. Interventional procedures include ACF C5-C7, BL CARLOS injections x1, BL TPIs C4-T1 x1 Medications include Tramadol, Valium REVIEW OF ORGAN SYSTEMS: CONSTITUTIONAL: No fevers or chills. No recent weight loss. NEUROLOGICAL: + numbness and tingling along the distal extremities. No seizure disorders or headaches. MUSCULOSKELETAL: + pain PSYCHIATRIC: Denies current depression or suicidal thoughts. Physical Examinations : Constitutional : Cooperative , not in acute distress . Neurologic : Cranial nerve II to XII intact. No focal neurological deficits. Psychiatric : alert & oriented x 3. Matching mood & appropriate affect. Judgment & insight intact. Musculoskeletal : Cervical Spine +BL CARLOS TTP Motor strength in the deltoid and biceps: Normal right side. Normal Left side Motor strength biceps and the wrist extensors: Normal right side . Normal left side Motor strength in the triceps muscle: Normal right side. Normal left side Deep tendon reflexes: Normal at the biceps. Normal at Brachioradialis. Normal at triceps Vertebral body tenderness to deep palpation over Cervical facet loading test: positive bilaterally Spurling test: positive bilaterally Neck distraction test: positive bila terally Leighann sign: positive bilaterally Lumbar spine Motor strength lower extremities ,thigh and legs 5/5 Right side , 5/5 Left side Deep tendon reflexes : Normal Knee Jerk. Normal Ankle Jerk Vertebral body tenderness over Hooper Test positive Lumbar facet Loading Test: positive Right / positive Left Range of motion of the lumbar spine Flexion 30 degrees, extension 10 degrees Straight Leg Raise test: Left/ Right positive at degrees Akin test: positive right / positive left. Severe tenderness over the Sacroiliac joint on the Right / Left sides Gaenslen test: positive bilaterally Seated flexion test: positive bilaterally. Sacral spine : Severe tenderness over the Sacroiliac joint: right side / left side Range of motion: Flexion of the lumbar spine <60 degrees Range of motion: Extension of the lumbar spine <20 degrees Gaenslen's Test positive Akin test: positive right side / left side Thigh Thrust Test Sacral Thrust Test Imaging: MRI noncontrast of the cervical spine from 09/15/21 reviewed MRI non contrast of the brain from 09/15/21 reviewed Assessment/ Plan : C5-C7 anterior cervical fusion w laminectomy syndrome, Occipital Neuralgia Will manage residual pain and may RTC on an as needed basis. All questions answered. I have spent greater than 30 minutes on patient care today. Dr Can was available by phone for the evaluation of this patient. The time was used to review the medical records including relevant urine studies and Prescription history (MAPs), review of the available imaging, evaluation and examination of the patient, coordination of care with the medical staff and if applicable referring physicians, as well as creation of the medical record PQRS Narrative: Smoking Status Never smoker Hx Alcohol Use (MH) No Home Medications: Ambulatory Orders Acetaminophen [Tylenol] 650 mg PO Q4H PRN 01/29/14 Levothyroxine Sodium [Synthroid] 50 mcg PO HS 01/29/14 diazePAM [Valium] 2 mg PO DAILY PRN 01/29/14 diphenhydrAMINE [Benadryl] 25 mg PO HS 01/29/14 traMADol HCl [Ultram] 100 mg PO QAM 01/29/14 Albuterol Sulfate [Proventil Hfa] 1 - 2 puff INHALATION Q6HR PRN 08/25/14 Esomeprazole Magnesium [NexIUM] 40 mg PO DAILY 01/19/15 Nystatin 100,000 Unit/gm Powd [Mycostatin Powder] 1 applic TOPICAL BID PRN 02/17/18 Desvenlafaxine Succinate [Pristiq] 75 mg PO DAILY 09/26/22 Glucosa Pineda 2Kcl/Chondroitin Pineda [Glucosamine-Chondroitin Cap] 3 each PO DAILY 09/26/22 Levocetirizine Dihydrochloride [Xyzal] 5 mg PO DAILY 09/26/22 Cholecalciferol [Vitamin D3 (25 Mcg = 1000 Iu)] 250 mcg PO DAILY 12/18/23 Zinc Gluconate [Zinc] 50 mg PO DAILY 12/18/23 ARIPiprazole [Abilify] 5 mg PO HS 03/13/24 Magnesium 400 mg PO DAILY 03/13/24 Controlled Substance Measures - Controlled Substance Measures Is patient prescribed a controlled substance at discharge?: No
== END ==
LOC: PNWHC3 07:33
PROVIDERS: ATTEND Specialist
DX: M47.812 Spondylosis without myelopathy or radiculopathy, cervical region (principal); M43.22 Fusion of spine, cervical region; M54.81 Occipital neuralgia; Z98.890 Other specified postprocedural states; Z91.048 Other nonmedicinal substance allergy status; Z88.5 Allergy status to narcotic agent; Z88.1 Allergy status to other antibiotic agents; Z88.8 Allergy status to other drugs, medicaments and biological substances; Z91.040 Latex allergy status; Z91.011 Allergy to milk products; Z88.0 Allergy status to penicillin
CPT/HCPCS: 99211

== ENCOUNTER → 2024-06-30 | Outpatient (CLI) | payer BC ==
--- NOTE | 2024-06-30 08:42 | MM ---
Reason for Exam: Screening (asymptomatic). Last mammogram was performed 1 year(s) and 6 month(s) ago. Patient History: Menarche at age 13. First Full-Term at age 25. Hysterectomy at age 48. Postmenopausal. Estrogen for 1 year, 6 months. Patient used Hormonal Contraceptives for 2 years. Risk Values: Asmita 5 year model risk: 1.5%. NCI Lifetime model risk: 8.3%. Prior Study Comparison: 07/08/2020 Bilateral Screening Mammogram, [facility]. 08/01/2021 Bilateral Screening Mammogram, [facility]. 12/05/2022 Bilateral MG 3D screening mammo w/cad, [facility]. Tissue Density: The breasts are heterogeneously dense, which may obscure small masses. Findings: Analyzed By CAD. Right breast: There is no suspicious group of microcalcifications or new suspicious mass. Left breast: There is no suspicious group of microcalcifications or new suspicious mass. Overall Assessment: Negative, BI-RAD 1 Management: Screening Mammogram of both breasts in [address] [facility] will attempt to contact patient to return for supplemental views and ultrasound if indicated. Patient should continue monthly self-breast exams. A clinical breast exam by your physician is recommended on an annual basis. This exam should not preclude additional follow-up of suspicious palpable abnormalities. Note on Asmita scores and lifetime risk: 1. A Asmita score greater than 3% is considered moderate risk. If this is the case, consider specialist referral to assess eligibility for a risk reducing agent. 2. If overall lifetime risk for the development of breast cancer is 20% or higher, the patient may qualify for future screening with alternating mammogram and breast MRI. [facility], , 06/30/2024 8:40 AM. Electronically signed and approved by: Jason Hernandez DO
== END | disposition home or self-care (01) ==
LOC: RADMAMWWP 07:27
PROVIDERS: ATTEND Family Medicine
DX: Z12.31 Encounter for screening mammogram for malignant neoplasm of breast (principal); R92.333 Mammographic heterogeneous density, bilateral breasts; Z78.0 Asymptomatic menopausal state
CPT/HCPCS: 77063; 77067